=== PATIENT | male | born 1965 | race Caucasian/White ===

== ENCOUNTER 2019-02-08 15:13 | Emergency (ER) | payer OTHER ==
--- OUTSIDE RECORDS SUMMARY | 2019-02-08 15:20 | XMS REPORT | Continuity of Care Document ---
:1965 External Reference #:[id number] Author Name Kimberly Tyson Care Team Providers Name Role Phone Jorden Alston III, MD Primary Care Physician Unavailable Payers Date Identification Numbers Payment Provider Subscriber Policy Number: [id number] [employer] Freda Colby [employer] Number: [id number] [address] PayID: [id number] [place] [address] Effective: 2011 Policy Number: [id number] [employer] Denia Samson Expires: 2012 PayID: [id number] [address] [place] [address] Advance Directives Type Date Description Status Comment Other Directive 03/22/2017 Health Care Proxy Current and Verified Problems Active Problems Provider Date Type 2 diabetes mellitus Melinda Guan M.D. Onset: 09/18/2011 Morbid obesity Melinda Guan M.D. Onset: 09/18/2011 Essential hypertension Melinda Guan M.D. Onset: 09/18/2011 Obstructive sleep apnea syndrome Melinda Guan M.D. Onset: 09/18/2011 Benign essential hypertension Melinda Guan M.D. Onset: 09/18/2011 Pure hypercholesterolemia Melinda Guan M.D. Onset: 12/22/2011 Low back pain Alberto Cramer M.D. Onset: 12/14/2014 Type II diabetes mellitus uncontrolled Jorden Alston M.D. Onset: 2015 Social History Type Date Description Comments Sex Unknown Lives With ETOH Use Rarely consumes beer Tobacco Use Start: Unknown End: Patient is a former smoker quit 2008 Unknown Recreational Drug Use Denies Drug Use Smoking Status Reviewed: 01/27/19 Patient is a former smoker quit 2008 Exercise Type/Frequency Exercises sporadically Allergies, Adverse Reactions, Alerts Description No Known Drug Allergies Medications Active Medications SIG Qnty Indications Ordering Date Provider Lisinopril 1 by mouth every 90tabs I10 Monico Khalil NP 12/22/2018 40mg day Tablets Triamcinolone apply twice daily 30gm R21 Monico Khalil NP 08/23/2017 Acetonide to the affected 0.5% Cream area Blood Glucose Test check blood 100units E11.65 Monico Khalil NP 08/23/2017 glucose 2-3 times Strips daily Vitamin B-12 1 by mouth once a 30tabs Monico Khalil NP 02/22/2017 500mcg day Tablets Slow-Mag One tablet twice 60tabs Monico Khalil NP 02/22/2017 71.5-119mg daily Tablets Naproxen 1 tablet with food 30tabs M79.606 Monico Khalil NP 02/19/2017 500mg by mouth twice a Tablets day for a week and then as needed. Aspirin 1 tablet daily. 90units Monico Khalil NP 07/01/2016 81mg Chewtabs Dexilant take 1 capsule by 90caps K21.9 Monico Khalil NP 01/10/2016 30mg mouth once Capsules DR daily-needs appointment Blood Glucose Test check blood 100units Monico Khalil NP 10/11/2015 glucose twice Strips daily Januvia take 1 tablet by 90tabs E11.65 Monico Khalil NP 10/11/2015 100mg Tablets mouth once daily Cpap, Heated Dx Code 327.23 1units G47.33 Monico Khalil NP 04/13/2014 Humidifier And Supplies Pravastatin Sodium Take 1 Tablet By 90tabs E78.0 Monico Khalil NP 01/10/2014 Mouth AT Bedtime 40mg Tablets Knee Brace Please wear on 844.9 Melinda Guan, 03/03/2013 [facility] [place] T.E.D. Below Knee wear as needed 2Pairs 844.9 Melinda Guan, 03/03/2013 [facility] [place] Take 1 Tablet By 90tabs Monico Khalil NP 11/12/2011 50mg Tablets Mouth Daily Metformin HCL take 1 tablet 180tabs Monico Khalil NP 1000mg twice daily Tablets History Medications Jardiance 09/22/18 not 30tabs E11.65 Monico Khalil NP 08/23/2017 - 10mg taking 1 by 12/22/2018 Tablets mouth daily in the morning Gabapentin take 1 tab qhs. 60caps R20.2 Monico Khalil NP 03/22/2017 - 100mg inrease by 100mg 08/23/2017 Capsules every few days to a max. of 300mg morning, noon and night Tramadol HCL 1-2 tablets 30tabs R20.2 Monico Khalil NP 03/22/2017 - 50mg every 8 hours as 08/23/2017 Tablets needed for pain. Lidocaine apply to painful 50units M79.606 Monico Khalil NP 02/19/2017 - 5% areas three 08/23/2017 Ointment times a day as needed. Jardiance 1 by mouth daily 90tabs E11.65 Jorden Tamayo 07/15/2016 - 10mg in the morning Clarence Alston 11/26/2016 Tablets [place] one to two tabs 40tabs Dominga Kent, 02/13/2016 - 5-325mg by mouth every M.D. 11/26/2016 Tablets 4-6 hours as needed pain Azithromycin 2 tabs by mouth 6tabs J20.9 Monico Khalil NP 08/29/2015 - 250mg every day x1 09/04/2015 Tablets day, 1 tab by mouth every day x 4 days Proair HFA take 1-2 puffs 1units J20.9 Monico Khalil NP 08/29/2015 - every 4-6 hours 09/16/2015 108(90Base) mcg/Act as needed for Aerosol shortness of breath. Lisinopril 1 by mouth every 14tabs Monico Khalil NP 10/02/2014 - 20mg day 10/03/2014 Tablets Onetouch Test use 2 times 100units E11.65 Melinda Guan, 01/12/2014 - daily to check M.D. 08/23/2017 Strips glucose. dx code 250.00 Lisinopril take 1 1/2 135tabs I10 Monico Khalil NP 08/16/2013 - 20mg tablets by mouth 12/22/2018 Tablets daily. Fluticasone 1 spray each 16gm 461.9 Melinda Guan, 04/25/2013 - Propionate nostril daily M.D. 06/19/2013 twice daily as 50mcg/Act needed Suspension Amoxicillin one tablet by 14caps 461.9 Melinda Guan, 04/25/2013 - 500mg mouth every 12 M.D. 06/19/2013 Capsules hours until gone Lisinopril 1 po qd 90tabs 401.9 Melinda Guan, 08/17/2012 - 10mg M.D. 08/16/2013 Tablets Aspirin Ec Lo-Dose 1 tablet daily. 90tabs Melinda Guan, 10/21/2011 - M.D. 07/01/[address] Furosemide po qd 90tabs Melinda Guan, - 40mg M.D. 08/17/2012 Tablets Losartan Potassium 1 po qd 90tabs Melinda Guan, - M.D. 06/28/2012 100mg Tablets Accu-Check Lindy use as directed 300units Monico Khalil NP - Test Strips 10/11/2015 Multi-Day Vitamins 1 po qd Unknown - 08/30/2015 Tablets Eye GTT Unknown - 03/03/2013 Latanoprost 1 drop each qd Unknown - 0.005% 01/10/2016 Solution Vitamin D3 1 po qd 30caps Unknown - 1000Unit 08/31/2015 Capsules Vitamin B-12 1 po qd 30tabs Unknown - 08/31/2015 1000mcg Tablets Sub Pantoprazole Sodium Take 1 Tablet 90tabs K21.9 Monico Khalil NP - Daily 01/10/[address] Brantley CPT Code Status Date Vaccine Lot # [id number] Given 07/15/2016 Influ Virus Vaccine, Quadrivalent, Split Virus, [place] [id number] [place] [id number] Given 07/11/2015 Influenza Virus Vaccine, Quadrivalent, Split, [id number] Preservative Free 05434 Given 06/19/2013 Flu Vaccine Split Virus Preservative Free For [id number] Indiv [id number] Older 58360 Given 02/25/2013 Tdap - Tetanus/Diptheria/Acellular Pertussis [id number] Given 04/08/2012 Fluzone Vaccine [id number] Given 04/08/2012 Pneumonia Vaccine [id number] Given 2007 Tetanus And Diptheria (Td) For Adult Use Preservative Free Vital Signs Date Vital Result Comment 01/27/2019 4:12pm Height 72 inches 6'0" Weight 339.00 lb Heart Rate 79 /min BP Systolic 132 mmHg BP Diastolic 92 mmHg BP Systolic Recheck 136 mmHg BP Diastolic Recheck 86 mmHg Body Temperature 98.2 F O2 % BldC Oximetry 98 % BMI (Body Mass Index) 46.0 kg/m2 12/22/2018 4:58pm Height 72 inches 6'0" Weight 341.38 lb Heart Rate 72 /min BP Systolic 148 mmHg BP Diastolic 96 mmHg BP Systolic Recheck 148 mmHg BP Diastolic Recheck 94 mmHg Body Temperature 98.4 F O2 % BldC Oximetry 98 % BMI (Body Mass Index) 46.3 kg/m2 09/22/2018 4:22pm Height 72 inches 6'0" Weight 348.75 lb Heart Rate 95 /min BP Systolic 169 mmHg BP Diastolic 99 mmHg BP Systolic Recheck 168 mmHg BP Diastolic Recheck 98 mmHg Body Temperature 99.8 F O2 % BldC Oximetry 96 % BMI (Body Mass Index) 47.3 kg/m2 11/24/2017 2:34pm Weight 347.25 lb Heart Rate 91 /min BP Systolic 132 mmHg BP Diastolic 82 mmHg Body Temperature 98.4 F O2 % BldC Oximetry 93 % 08/23/2017 2:41pm Weight 354.50 lb Heart Rate 75 /min BP Systolic 142 mmHg BP Diastolic 84 mmHg BP Systolic Recheck 140 mmHg BP Diastolic Recheck 88 mmHg Body Temperature 98.2 F O2 % BldC Oximetry 98 % 04/12/2017 2:04pm Height 70 inches 5'10" Weight 244.00 lb Heart Rate 70 /min BP Systolic Sitting 142 mmHg BP Diastolic Sitting 80 mmHg Pain Level 8 BMI (Body Mass Index) 35.0 kg/m2 03/22/2017 4:10pm Height 70 inches 5'10" Weight 344.50 lb Heart Rate 94 /min BP Systolic Sitting 132 mmHg BP Diastolic Sitting 86 mmHg Respiratory Rate 24 /min Pain Level 6 legs BMI (Body Mass Index) 49.4 kg/m2 02/19/2017 9:11am Weight 353.50 lb Heart Rate 92 /min BP Systolic 136 mmHg BP Diastolic 78 mmHg Body Temperature 97.0 F O2 % BldC Oximetry 97 % 11/26/2016 8:19am Weight 358.00 lb Heart Rate 65 /min BP Systolic Sitting 136 mmHg BP Diastolic Sitting 88 mmHg O2 % BldC Oximetry 98 % 07/15/2016 10:41am Height 70 inches 5'10" Weight 363.00 lb Heart Rate 78 /min BP Systolic Sitting 148 mmHg BP Diastolic Sitting 100 mmHg Body Temperature 98.3 F O2 % BldC Oximetry 97 % BMI (Body Mass Index) 52.1 kg/m2 04/13/2016 8:56am Weight 347.00 lb Heart Rate 68 /min BP Systolic Sitting 140 mmHg BP Diastolic Sitting 84 mmHg Respiratory Rate 15 /min Body Temperature 98.0 F O2 % BldC Oximetry 98 % 03/26/2016 2:36pm Height 70 inches 5'10" Weight 342.00 lb Pain Level 0 BMI (Body Mass Index) 49.1 kg/m2 03/03/2016 1:15pm Height 70 inches 5'10" Weight 342.00 lb Body Temperature 98.4 F Pain Level 0 BMI (Body Mass Index) 49.1 kg/m2 02/13/2016 1:48pm Height 70 inches 5'10" Weight 342.00 lb BP Systolic 135 mmHg BP Diastolic 80 mmHg Pain Level 7 BMI (Body Mass Index) 49.1 kg/m2 01/10/2016 8:56am Weight 350.25 lb Heart Rate 71 /min BP Systolic Sitting 136 mmHg BP Diastolic Sitting 86 mmHg Body Temperature 98.3 F O2 % BldC Oximetry 98 % 10/11/2015 8:48am Weight 365.50 lb Heart Rate 70 /min BP Systolic Sitting 140 mmHg BP Diastolic Sitting 90 mmHg Body Temperature 98.0 F O2 % BldC Oximetry 98 % 08/29/2015 8:56am Weight 361.25 lb Heart Rate 83 /min BP Systolic Sitting 154 mmHg BP Diastolic Sitting 98 mmHg Respiratory Rate 18 /min Body Temperature 98.1 F O2 % BldC Oximetry 94 % 08/12/2015 8:59am Weight 365.00 lb Heart Rate 69 /min BP Systolic Sitting 130 mmHg BP Diastolic Sitting 88 mmHg Body Temperature 97.3 F O2 % BldC Oximetry 98 % 07/11/2015 11:01am Height 72 inches 6'0" Weight 365.00 lb Heart Rate 80 /min BP Systolic Sitting 148 mmHg BP Diastolic Sitting 90 mmHg Body Temperature 98.4 F BMI (Body Mass Index) 49.5 kg/m2 12/14/2014 12:43pm Height 72 inches 6'0" Weight 374.00 lb Heart Rate 80 /min BP Systolic Sitting 150 mmHg BP Diastolic Sitting 90 mmHg Pain Level 2 back BMI (Body Mass Index) 50.7 kg/m2 11/08/2014 9:05am Weight 373.00 lb Heart Rate 70 /min BP Systolic Sitting 170 mmHg Manual recheck 142/88 BP Diastolic Sitting 111 mmHg Manual recheck 142/88 Body Temperature 98.0 F O2 % BldC Oximetry 98 % 08/10/2014 8:50am Height 72 inches 6'0" Weight 372.00 lb Heart Rate 78 /min BP Systolic 142 mmHg recheck:130/90 BP Diastolic 98 mmHg recheck:130/90 BMI (Body Mass Index) 50.4 kg/m2 05/10/2014 10:04am Height 72 inches 6'0" Weight 376.00 lb Heart Rate 72 /min BP Systolic Sitting 132 mmHg BP Diastolic Sitting 78 mmHg Body Temperature 98.6 F BMI (Body Mass Index) 51.0 kg/m2 01/10/2014 8:31am Weight 384.25 lb Heart Rate 73 /min BP Systolic Sitting 135 mmHg BP Diastolic Sitting 89 mmHg Body Temperature 98.9 F 09/26/2013 8:37am Weight 390.00 lb Heart Rate 72 /min BP Systolic Sitting 140 mmHg BP Diastolic Sitting 78 mmHg Respiratory Rate 20 /min 08/16/2013 10:15am Weight 384.00 lb Heart Rate 74 /min BP Systolic Sitting 138 mmHg BP Diastolic Sitting 86 mmHg 07/19/2013 10:00am Weight 388.25 lb Heart Rate 76 /min BP Systolic Sitting 142 mmHg BP Diastolic Sitting 98 mmHg 07/07/2013 9:38am Weight 385.50 lb Heart Rate 80 /min BP Systolic 144 mmHg BP Diastolic 86 mmHg 06/19/2013 8:59am Weight 386.50 lb Heart Rate 72 /min BP Systolic 138 mmHg BP Diastolic 84 mmHg 04/25/2013 3:07pm Weight 375.00 lb Heart Rate 72 /min BP Systolic Sitting 138 mmHg BP Diastolic Sitting 84 mmHg Body Temperature 98.2 F 03/03/2013 10:38am Weight 373.00 lb Heart Rate 72 /min BP Systolic Sitting 144 mmHg BP Diastolic Sitting 88 mmHg 12/28/2012 9:49am Weight 384.50 lb Heart Rate 70 /min BP Systolic Sitting 140 mmHg 130/84 recheck BP Diastolic Sitting 90 mmHg 130/84 recheck 10/24/2012 10:35am Height 72.75 inches 6'0.75" Weight 390.00 lb Heart Rate 70 /min BP Systolic Sitting 140 mmHg BP Diastolic Sitting 80 mmHg Body Temperature 98.4 F BMI (Body Mass Index) 51.8 kg/m2 08/17/2012 8:39am Height 72.75 inches 6'0.75" Weight 392.00 lb Heart Rate 70 /min BP Systolic Sitting 130 mmHg BP Diastolic Sitting 84 mmHg BMI (Body Mass Index) 52.1 kg/m2 04/08/2012 9:32am Height 72.75 inches 6'0.75" Weight 381.00 lb Heart Rate 72 /min BP Systolic Sitting 122 mmHg BP Diastolic Sitting 80 mmHg BMI (Body Mass Index) 50.6 kg/m2 03/14/2012 9:47am Height 72.75 inches 6'0.75" Weight 382.00 lb Heart Rate 70 /min BP Systolic Sitting 130 mmHg BP Diastolic Sitting 82 mmHg BMI (Body Mass Index) 50.7 kg/m2 02/09/2012 8:36am Height 72.75 inches 6'0.75" Weight 379.00 lb Heart Rate 72 /min BP Systolic Sitting 134 mmHg BP Diastolic Sitting 82 mmHg BMI (Body Mass Index) 50.3 kg/m2 12/22/2011 8:30am Height 72.75 inches 6'0.75" Weight 381.00 lb Heart Rate 76 /min BP Systolic Sitting 144 mmHg BP Diastolic Sitting 78 mmHg BMI (Body Mass Index) 50.6 kg/m2 10/21/2011 11:03am Height 72.75 inches 6'0.75" Weight 377.00 lb Heart Rate 72 /min BP Systolic Sitting 142 mmHg BP Diastolic Sitting 76 mmHg BMI (Body Mass Index) 50.1 kg/m2 09/18/2011 3:21pm Height 72.75 inches 6'0.75" Weight 376.00 lb Heart Rate 74 /min BP Systolic Sitting 138 mmHg BP Diastolic Sitting 72 mmHg BMI (Body Mass Index) 49.9 kg/m2 Results Test Date Facility Test Result H/L Range Note Laboratory test 12/22/2018 [facility] House Hemoglobin A1c 6.5% 5-7 finding Lipid Profile 09/24/2018 [facility] Triglycerides 174 mg/dL 1 (Trig/Chol/HDL) [address] [place] [address] [phone] Cholesterol 148 mg/dL 2 HDL Cholesterol 25.0 mg/dL 3 LDL Cholesterol 88 mg/dL 4 Comp Metabolic Panel 09/24/2018 [facility] Sodium 138 mmol/L N 135-[address] [place] [address] [phone] Potassium 4.4 mmol/L N 3.5-5.0 Chloride 101 mmol/L N 101-111 Co2 Carbon Dioxide 30 mmol/L N 22-32 Anion Gap 7 mmol/L N 2-11 Glucose 134 mg/dL High 70-100 Blood Urea Nitrogen 9 mg/dL N 6-24 Creatinine 0.76 mg/dL N 0.67-1.17 BUN/Creatinine Ratio 11.8 N 8-20 Calcium 9.6 mg/dL N 8.6-10.3 Total Protein 7.1 g/dL N 6.4-8.9 Albumin 4.3 g/dL N 3.2-5.2 Globulin 2.8 g/dL N 2-4 Albumin/Globulin Ratio 1.5 N 1-3 Total Bilirubin 0.60 mg/dL N 0.2-1.0 Alkaline Phosphatase 70 U/L N 34-104 Alt 56 U/L High 7-52 Ast 46 U/L High 13-39 Egfr Non- 106.9 >60 Egfr 129.3 >60 5 Laboratory test 09/24/2018 [facility] Hemoglobin A1c 7.4 % High 4.0-5.[address] (Glyco HGB) [place] [address] [phone] Urine 09/24/2018 [facility] Ur Microalbumin 92.[address] (mg/L) [place] [address] [phone] Urine Creatinine 158.81 mg/dL Urine Microalbumin/Creatinine 58.3 High <31 Laboratory test 09/22/2018 [facility] House Hemoglobin A1c 7.3 High 5-7 finding Urine Microalbumin 09/22/2018 [facility] Ur Microalbumin 121.[address] (mg/L) [place] [address] [phone] Urine Creatinine 190.16 mg/dL Urine Microalbumin/Creatinine 63.9 High <31 Laboratory test 11/22/2017 [facility] Hemoglobin A1c 7.9 % High 4.0-5.6 [address] (Glyco HGB) [place] [address] [phone] Urine 11/22/2017 [facility] Ur Microalbumin 49.[address] (mg/L) mg/[place] [address] [phone] Urine Creatinine 160.88 mg/dL Urine Microalbumin/Creatinine 30.7 ug/mg N <31 Laboratory test 08/23/2017 [facility] House Hemoglobin A1c 11.0 High 5-7 finding CBC Auto Diff 02/20/2017 [facility] White Blood Count 4.6 N 3.5-10.[address] 10^3/[place] [address] [phone] Red Blood Count 4.81 10^6/uL N 4.0-5.4 Hemoglobin 14.3 g/dL N 14.0-18.0 Hematocrit 42 % N 42-52 Mean Corpuscular Volume 88 fL N 80-94 Mean Corpuscular Hemoglobin 30 pg N 27-31 Mean Corpuscular HGB Conc 34 g/dL N 31-36 Red Cell Distribution Width 14 % N 10.5-15 Platelet Count 137 10^3/uL Low 150-450 Mean Platelet Volume 10 um3 N 7.4-10.4 Abs Neutrophils 2.7 10^3/uL N 1.5-7.7 Abs Lymphocytes 1.4 10^3/uL N 1.0-4.8 Abs Monocytes 0.3 10^3/uL N 0-0.8 Abs Eosinophils 0.1 10^3/uL N 0-0.6 Abs Basophils 0 10^3/uL N 0-0.2 Abs Nucleated RBC 0 10^3/uL N Granulocyte % 59.3 % N 38-83 Lymphocyte % 30.6 % N 25-47 Monocyte % 7.6 % N 1-9 Eosinophil % 1.5 % N 0-6 Basophil % 1.0 % N 0-2 Nucleated Red Blood Cells % 0 N Laboratory test 02/20/2017 [facility] TSH (Thyroid 1.46 mcIU/mL N 0.34-5.[address] Stim Horm) [place] [address] [phone] Vitamin B12 228 pg/mL N 180-914 8 Magnesium 1.7 mg/dL Low 1.9-2.7 Comp Metabolic Panel 02/20/2017 [facility] Sodium 136 mmol/L N 133-[address] [place] [address] [phone] Potassium 4.3 mmol/L N 3.5-5.0 Chloride 102 mmol/L N 101-111 Co2 Carbon Dioxide 27 mmol/L N 22-32 Anion Gap 7 mmol/L N 2-11 Glucose 193 mg/dL High 70-100 Blood Urea Nitrogen 8 mg/dL N 6-24 Creatinine 0.68 mg/dL N 0.67-1.17 BUN/Creatinine Ratio 11.8 N 8-20 Calcium 8.9 mg/dL N 8.6-10.3 Total Protein 6.8 g/dL N 6.4-8.9 Albumin 3.9 g/dL N 3.2-5.2 Globulin 2.9 g/dL N 2-4 Albumin/Globulin Ratio 1.3 N 1-3 Total Bilirubin 0.40 mg/dL N 0.2-1.0 Alkaline Phosphatase 93 U/L N 34-104 Alt 63 U/L High 7-52 Ast 66 U/L High 13-39 Egfr Non- 122.5 N >60 Egfr 157.5 N >60 9 Lipid Profile 02/20/2017 [facility] Triglycerides 266 mg/dL N 10 (Trig/Chol/HDL) [address] [place] [address] [phone] Cholesterol 123 mg/dL N 11 HDL Cholesterol 23.3 mg/dL N 12 LDL Cholesterol 47 mg/dL N 13 Laboratory test 02/20/2017 [facility] Hemoglobin A1c 10.1 % High Less [address] (Glyco HGB) than 6.0 [place] [address] [phone] Urine 11/26/2016 [facility] Urine 170.[address] Creatinine mg/[place] [address] [phone] Ur Microalbumin (mg/L) 125.9 mg/L N Urine Microalbumin/Creatinine 73.8 ug/mg High <31 Laboratory test 11/26/2016 [facility] House Hemoglobin A1c 10.4 High 5-7 finding Laboratory test 07/15/2016 [facility] House Hemoglobin A1c 8.5 High 5-7 finding Laboratory test 06/05/2016 [facility] Surgical SEE RESULT [address] [place] [address] [phone] Laboratory test 04/13/2016 [facility] House Hemoglobin A1c 6.6 5-7 finding Mumps Igg 03/09/2016 [facility] Mumps Virus IgG Positive N [address] Antibody [place], [place] [address] [phone] Mumps IgG Antibody Index 3.6 N 17 Laboratory test 03/09/2016 [facility] Rubella Immune IU/mL N Immune finding [address] [place] [address] [phone] Rubeola Measles 03/09/2016 [facility] Rubeola Positive N 18 Igg AB [address] (Measles) [place] [address] Antibody [phone] Rubeola IgG Antibody Index 4.2 N 19 Laboratory 02/21/2016 [facility] Surgical SEE 20, 21 test finding [address] [place] [address] BELOW [phone] Laboratory 02/21/2016 [facility] Point of Care 137 mg/dL High 74-106 22 test finding [address] [place] [address] [phone] Laboratory 01/03/2016 [facility] Hemoglobin A1c 7.4 % High Less 23 test finding [address] (Glyco HGB) [place] [address] [phone] Lipid Profile 01/03/2016 [facility] Triglycerides 120 mg/dL N 24 (Trig/Chol/HDL [address] ) [place] [address] [phone] Cholesterol 113 mg/dL N 25 HDL Cholesterol 23.1 mg/dL N 26 LDL Cholesterol 66 mg/dL N 27 Laboratory test 10/11/2015 [facility] House Hemoglobin A1c 9.4 High 5-7 finding Urine Microalbumin 08/10/2015 [facility] Ur Microalbumin 221.0 mg/L N Random [address] (mg/L) [place] [address] [phone] Urine Creatinine 228.37 mg/dL N Urine Microalbumin/Creatinine 96.7 ug/mg High <31 Basic Metabolic Panel 08/10/2015 [facility] Sodium 134 mmol/L N 133-[address] [place], [place] [id number] [phone] Potassium 4.3 mmol/L N 3.5-5.0 Chloride 98 mmol/L Low 101-111 Co2 Carbon Dioxide 28 mmol/L N 22-32 Anion Gap 8 mmol/L N 2-11 Glucose 212 mg/dL High 70-100 Blood Urea Nitrogen 9 mg/dL N 6-24 Creatinine 0.78 mg/dL N 0.67-1.17 BUN/Creatinine Ratio 11.5 N 8-20 Calcium 9.3 mg/dL N 8.6-10.3 Egfr Non- 104.9 N >60 Egfr 135.0 N >60 28 Laboratory 08/10/2015 [facility] Hepatitis C Nonreactive N Nonreactive test finding [address] [place] [address] [phone] Laboratory 07/11/2015 [facility] In House Hemoglobin A1c 10.9 High 5-7 test finding Lipid 11/08/2014 [facility] Triglycerides 176 mg/dL N 29, Profile [address] 30 (Trig/Chol/[place] [address] DL) [phone] Cholesterol 132 mg/dL N 31 HDL Cholesterol 28.2 mg/dL N 32 LDL Cholesterol 69 mg/dL N 33 Basic Metabolic Panel 11/08/2014 [facility] Sodium 135 mmol/L N 133-[address] [place] [address] [phone] Potassium 4.2 mmol/L N 3.5-5.0 Chloride 101 mmol/L N 101-111 Co2 Carbon Dioxide 29 mmol/L N 22-32 Anion Gap 5 mmol/L N 2-11 Glucose 157 mg/dL High 70-100 Blood Urea Nitrogen 9 mg/dL N 6-24 Creatinine 0.76 mg/dL N 0.67-1.17 BUN/Creatinine Ratio 11.8 N 8-20 Calcium 9.4 mg/dL N 8.6-10.3 Egfr Non- 108.6 N >60 Egfr 139.6 N >60 34 Laboratory test 11/08/2014 [facility] House Hemoglobin A1c 8.2 High 5-7 finding Laboratory test 08/10/2014 [facility] House Hemoglobin A1c 7.2 High 5-7 finding Laboratory test 05/10/2014 [facility] House Hemoglobin A1c 7.9 High 5-7 finding Urine Microalbumin 05/10/2014 [facility] Ur Microalbumin 62.0 mg /L N Random [address] (mg/L) [place] [address] [phone] Urine Creatinine 196.55 mg/dL N Urine Microalbumin/Creatinine 31.5 High Less Than 31 Lipid Profile 01/08/2014 [facility] Triglycerides 361 mg/dL N 35 (Trig/Chol/HDL) [address] [place] [address] [phone] Cholesterol 176 mg/dL N 36 HDL Cholesterol 24.2 mg/dL N 37 LDL Cholesterol 80 mg/dL N 38 Comp Metabolic Panel 01/08/2014 [facility] Sodium 133 mmol/L N 133-145 [address] [place] [address] [phone] Potassium 4.8 mmol/L N 3.7-5.6 Chloride 97 mmol/L Low 101-111 Co2 Carbon Dioxide 31 mmol/L N 22-32 Anion Gap 5 mmol/L N 2-11 Glucose 169 mg/dL High 70-100 Blood Urea Nitrogen 11 mg/dL N 6-24 Creatinine 0.79 mg/dL N 0.67-1.17 BUN/Creatinine Ratio 13.9 N 8-20 Calcium 9.4 mg/dL N 8.6-10.3 Total Protein 7.0 g/dL N 6.4-8.9 Albumin 4.3 g/dL N 3.2-5.2 Globulin 2.7 g/dL N 2-4 Albumin/Globulin Ratio 1.6 N 1-3 Total Bilirubin 0.50 mg/dL N 0.2-1.0 Alkaline Phosphatase 74 U/L N 34-104 Alt 55 U/L High 7-52 Ast 45 U/L High 13-39 Egfr Non- 104.2 N >60 Egfr 134.1 N >60 39 Laboratory test 01/08/2014 [facility] Hemoglobin A1c 8.4 % High Less than [address] 6.0 [place] [address] [phone] Comp Metabolic 09/25/2013 [facility] Sodium 137 133-[address] mmol/[place] [address] [phone] Potassium 4.7 mmol/L 3.7-5.6 Chloride 100 mmol/L Low 101-111 Co2 Carbon Dioxide 29 mmol/L 22-32 Anion Gap 8 mmol/L 2-11 Glucose 166 mg/dL High 70-100 Blood Urea Nitrogen 10 mg/dL 6-24 Creatinine 0.79 mg/dL 0.67-1.17 BUN/Creatinine Ratio 12.7 8-20 Calcium 9.2 mg/dL 8.6-10.3 Total Protein 6.7 g/dL 6.4-8.9 Albumin 4.3 g/dL 3.2-5.2 Globulin 2.4 g/dL 2-4 Albumin/Globulin Ratio 1.8 1-3 Total Bilirubin 0.40 mg/dL 0.2-1.0 Alkaline Phosphatase 70 U/L 34-104 Alt 59 U/L High 7-52 Ast 56 U/L High 13-39 Egfr Non- 104.2 >60 Egfr 134.1 >60 41 Laboratory test 09/25/2013 [facility] Hemoglobin A1c 8.5 % High Less [address] than 6.0 [place] [address] [phone] Laboratory test 06/19/2013 [facility] Registered In House Hemoglobin A1c 7.7 High 5-7 finding Urine 06/19/2013 [facility] Ur Microalbumin 46.0 [address] (mg/L) mg/[place] [address] [phone] Urine Creatinine 150.6 mg/dL Urine Microalbumin/Creatinine 30.5 Less Than 31 Lipid Profile 02/06/2013 [facility] Triglycerides 308 mg/dL High 40-200 (Trig/Chol/HDL) [address] [place] [address] [phone] Cholesterol 156 mg/dL Less than 200 HDL Cholesterol 23 mg/dL Low 40-60 44 Cholesterol/HDL Ratio 6.8 Average High 1-4.44 LDL Cholesterol 71.4 Less Than 100 45 Laboratory test 02/06/2013 [facility] Hemoglobin A1c 7.0 % High Less [address] than 6.0 [place] [address] [phone] Laboratory test 02/06/2013 [facility] Methylmalonic 0.32 <= 0.[address] Acid nmol/[place] [address] [phone] Laboratory test 12/28/2012 [facility] TSH (Thyroid 1.26 0.34- 5.[address] Stimulating Horm) miu/mL 0 [place] [address] [phone] Vitamin B12 279 pg/mL 180-914 Vitamin D, 25 12/28/2012 [facility] 25-Hydroxy Vitamin <4.0 ng/ mL [address] D[address] [place] [address] [phone] 25-Hydroxy Vitamin D3 19 ng/mL 25-Hydroxy Vitamin D Total 19 ng/mL Abnormal 48 Laboratory test 10/24/2012 [facility] Hemoglobin A1c 8.2 High 5-7 finding Laboratory test 08/17/2012 [facility] Hemoglobin A1c 7.4 High 5-7 finding Basic Metabolic 08/17/2012 [facility] Sodium 138 mmol/L 133- [address] [place] [address] [phone] Potassium 4.7 mmol/L 3.5-5.0 Chloride 101 mmol/L 101-111 Co2 Carbon Dioxide 30.0 mmol/L 22-32 Anion Gap 7.0 mmol/L 2-11 Glucose 140 mg/dL High 70-100 Blood Urea Nitrogen 9 mg/dL 6-24 Creatinine 1.00 mg/dL 0.50-1.40 BUN/Creatinine Ratio 9.0 8-20 Calcium 9.7 mg/dL 8.1-9.9 Egfr Non- 79.8 >60 Egfr 102.6 >60 49 Urine Microalbumin 03/28/2012 [facility] Microalbumin 28.0 mg/L Random [address] (MG/L) [place] [address] [phone] Urine Creatinine 223.5 mg/dL Mamadou Alb/Creatinine Ratio 12.5 UG/MG Less Than 30 50 Laboratory test 03/28/2012 [facility] Hemoglobin A1c 6.9 % High Less Than [address] 6[address] [place] [address] [phone] Lipid Profile 03/28/2012 [facility] Triglyceride 277 High 40- 200 (Trig/Chol/HDL) [address] mg/[place] [address] [phone] Cholesterol 180 mg/dL Less Than 200 52 High Density Lipoprotein 24 mg/dL Low 40-60 53 Cholesterol/HDL Ratio 7.50 AVERAGE High 1-4.97 Low Density Lipoprotein 101 mg/dL High Less Than 100 54 Comp Metabolic Panel 03/28/2012 [facility] Sodium 137 mmol/L 135-[address] [place] [address] [phone] Potassium 4.6 mmol/L 3.5-5.0 Chloride 103 mmol/L 101-111 Co2 (Carbon Dioxide) 29.0 mmol/L 22-32 Anion Gap 5.0 mmol/L 2-11 55 Glucose 132 mg/dL High 70-100 BUN 11 mg/dL 6-24 Creatinine 0.8 mg/dL 0.50-1.40 One Over Creatinine 1.25 BUN/Creatinine Ratio 13.8 8-20 Calcium 9.4 mg/dL 8.1-9.9 Total Protein 6.2 GM/DL 6.2-8.1 Albumin 3.7 GM/DL 3.6-5.4 Globulin 2.5 GM/DL 2-4 Albumin/Globulin Ratio 1.5 1-3 Bilirubin Total 0.5 mg/dL 0.4-1.5 56 Alkaline Phosphatase 74 U/L 39-117 Alt (SGPT) 35 U/L 17-63 Ast (Sgot) 22 U/L 12-42 eGFR Non- 103.6 > 60 eGFR 133.3 > 60 57 Lipid Panel - J[facility] 03/28/2012 [facility] CPK (Creatine 138 U/L 0-[address] Kinase) [place] [address] [phone] Laboratory test 12/22/2011 [facility] House Hemoglobin A1c 6.4 5-7 finding Comp Metabolic 12/21/2011 [facility] Sodium 139 135-[address] mmol/[place] [address] [phone] Potassium 4.7 mmol/L 3.5-5.0 Chloride 103 mmol/L 101-111 Co2 (Carbon Dioxide) 30.0 mmol/L 22-32 Anion Gap 6.0 mmol/L 2-11 58 Glucose 129 mg/dL High 70-100 BUN 11 mg/dL 6-24 Creatinine 0.9 mg/dL 0.50-1.40 One Over Creatinine 1.11 BUN/Creatinine Ratio 12.2 8-20 Calcium 9.3 mg/dL 8.1-9.9 Total Protein 6.4 GM/DL 6.2-8.1 Albumin 4.0 GM/DL 3.6-5.4 Globulin 2.4 GM/DL 2-4 Albumin/Globulin Ratio 1.7 1-3 Bilirubin Total 0.5 mg/dL 0.4-1.5 59 Alkaline Phosphatase 73 U/L 39-117 Alt (SGPT) 33 U/L 17-63 Ast (Sgot) 20 U/L 12-42 eGFR Non- 90.4 > 60 eGFR 116.3 > 60 60 Lipid Profile 12/21/2011 [facility] Triglyceride 166 mg/dL 40 -200 (Trig/Chol/HDL) [address] [place] [address] [phone] Cholesterol 179 mg/dL Less Than 200 61 High Density Lipoprotein 23 mg/dL Low 40-60 62 Cholesterol/HDL Ratio 7.78 AVERAGE High 1-4.97 Low Density Lipoprotein 123 mg/dL High Less Than 100 63 Laboratory test finding 09/18/2011 [facility] Hemoglobin A1c 6.1 5-7 1 Desirable: <150 Borderline High: 150-199 High: 200-499 Very High: >500 2 Desirable: <200 Borderline High: 200-239 High: >239 3 Low: <40 Desirable: 40-60 High: >60 4 Desirable: <100 Near Optimal: 100-129 Borderline High: 130-159 High: 160-189 Very High: >189 5 Because ethnic data is not always readily available, this report includes an eGFR for both -Americans and non- Americans. The National Kidney Disease Education Program (NKDEP) does not endorse the use of the MDRD equation for patients that are not between the ages of 18 and 70, are , have extremes of body size, muscle mass, or nutritional status, or are non- or non-. According to the National Kidney Foundation, irrespective of diagnosis, the stage of the disease is based on the level of kidney function: Stage Description GFR(mL/min/1.73 m(2)) 1 Kidney damage with normal or decreased GFR 90 2 Kidney damage with mild decrease in GFR 60-89 3 Moderate decrease in GFR 30-59 4 Severe decrease in GFR 15-29 5 Kidney failure <15 (or dialysis) 6 Therapeutic target for the treatment of diabetes mellitus patients is <7% HBA1C, and in selective patients <6.0%. Please refer to [place] [employer] diabetic care guidelines for further information. 7 Therapeutic target for the treatment of diabetes mellitus patients is <7% HBA1C, and in selective patients <6.0%. Please refer to [place] [employer] diabetic care guidelines for further information. 8 Normal Range 180 to 914 Indeterminate Range 145 to 180 Deficient Range <145 9 Because ethnic data is not always readily available, this report includes an eGFR for both -Americans and non- Americans. The National Kidney Disease Education Program (NKDEP) does not endorse the use of the MDRD equation for patients that are not between the ages of 18 and 70, are , have extremes of body size, muscle mass, or nutritional status, or are non- or non-. According to the National Kidney Foundation, irrespective of diagnosis, the stage of the disease is based on the level of kidney function: Stage Description GFR(mL/min/1.73 m(2)) 1 Kidney damage with normal or decreased GFR 90 2 Kidney damage with mild decrease in GFR 60-89 3 Moderate decrease in GFR 30-59 4 Severe decrease in GFR 15-29 5 Kidney failure <15 (or dialysis) 10 Desirable <150 Borderline high 150-199 High 200-499 Very High >500 11 Desirable <200 Borderline high 200-239 High >239 12 Low <40 Desirable: 40-60 High: >60 13 Desirable: <100 mg/dL Near Optimal: 100-129 mg/dL Borderline High: 130-159 mg/dL High: 160-189 mg/dL Very High: >189 mg/dL 14 Therapeutic target for the treatment of diabetes Mellitus patients is <7% HBA1C, and in selective patients <6.0%.Please refer to [place] [employer] Diabetic care guidelines for further information. 15 SEE RESULT BELOW Name: DENIA SAMSON : [address]: Keanu Joy MD Acct: [id number] Unit: [id number] AGE: 50 Location: ENDO Re06/05/16 SEX: M Status: DEP REF SPEC: [id number] SHITAL: 06/05/16-[address] [facility] [address]: Keanu Joy MD REQ: [id number] RECD: 06/05/165 STATUS: VANCE PALMA DR: Monico Alston III, MD _ ORDERED: LEVEL IV/5 FINAL DIAGNOSIS 1. Colon, proximal transverse, biopsy: -- Hyperplastic polyp. 2. Colon, distal transverse, biopsy: -- Hyperplastic polyp. 3. Colon, ileocecal nodule, biopsy: -- Hyperplastic change. 4. Colon, mid transverse, biopsy: -- Tubular adenoma. -- No high grade dysplasia or malignancy. 5. Colon, splenic flexure, biopsy: -- Hyperplastic polyp. CLINICAL HISTORY Usual bowel habit - twice a day - loose, without blood POST-OPERATIVE DIAGNOSIS Colonoscopy to cecum prep fair to poor, many seeds, scoped clogged. Conclusions/Plan: Pancolonic diverticulosis - sigmoid greater than right; polyps CONTINUED ON NEXT PAGE * ML=Testing performed at Main Lab DEPARTMENT OF PATHOLOGY, [address] [place] [address] Varun Robins M.D. Director [facility] # [id number] RUN DATE: 06/08/16 [facility] LAB LIVE PAGE 2 Patient: DENIA SAMSON [id number] (Continued) GROSS DESCRIPTION (Continued) GROSS DESCRIPTION 1. The specimen is received in formalin labeled, Proximal Transverse Colon Polyp, and consists of a 0.8 x 0.6 x 0.1 cm aggregate of andrews-white irregular to polypoid soft tissue fragments, which is entirely submitted in one cassette. 2. The specimen is received in formalin labeled, Biopsy Distal Transverse Colon Nodule, and consists of a 1.1 by up to 0.6 by up to 0.2 cm aggregate of speckled andrews- brown irregular to polypoid soft tissue fragments, which is entirely submitted in one cassette. 3. The specimen is received in formalin labeled, Biopsy Ileocecal Nodule, and consists of a 0.6 x 0.2 x 0.2 cm speckled andrews-brown irregular to polypoid soft tissue fragment, which is entirely submitted in one cassette. 4. The specimen is received in formalin labeled, Mid Transverse Colon Polyp , and consists of a 1.0 x 0.5 x 0.3 cm speckled andrews-brown sessile polyp, which is inked, longitudinally bisected and entirely submitted in one cassette. 5. The specimen is received in formalin labeled, Biopsy Splenic Flexure Nodule, and consists of two speckled andrews-brown irregular to polypoid soft tissue fragments measuring 0.5 x 0.3 x 0.1 cm and 0.8 x 0.2 x 0.1 cm, which are entirely submitted in one cassette. Signed (signature on file) Varun Robins MD 1502 END OF REPORT * ML=Testing performed at Main Lab DEPARTMENT OF PATHOLOGY, [address] [place] [address] Varun Robins M.D. Director [facility] # [id number] 16 Results suggest response to immunization or prior exposure to the virus. REFERENCE VALUE Vaccinated: Positive (>=1.1 AI) Unvaccinated: Negative (<=0.8 AI) 17 Test Performed by: [place] [id number] [employer] Mechanic: Blake Choudhury II, M.D., Ph.D. 18 Results suggest response to immunization or prior exposure to the virus. REFERENCE VALUE Vaccinated: Positive (>=1.1 AI) Unvaccinated: Negative (<=0.8 AI) 19 Test Performed by: [address] [address] [employer]ic: Blake Choudhury II, M.D., Ph.D. 20 [id number] 21 SEE RESULT BELOW Name: DENIA SAMSON : [address]: Dominga Kent MD Acct: [id number] Unit: [id number] AGE: 50 Location: [facility] Re02/21/16 SEX: M Status: REG [facility] SPEC: [id number] SHITAL: 02/21/16-[address] [facility] [address]: Dominga Kent MD REQ: [id number] RECD: 02/21/166 STATUS: SOUT _ ORDERED: Decal, LEVEL III COMMENTS: [id number] FINAL DIAGNOSIS Ulna, resection: -- Segment of cortical bone. PRE-OPERATIVE DIAGNOSIS Sprain of carpal joint left wrist. GROSS DESCRIPTION The specimen is received in formalin labeled, Portion of Left Ulna, and consists of a 2.2 x 1.6 x 0.2 cm andrews-white ovoid bone fragment. Entirely submitted, one cassette following decalcification. MICROSCOPIC DESCRIPTION Signed (signature on file) Varun Robins MD 1145 END OF REPORT * ML=Testing performed at Main Lab DEPARTMENT OF PATHOLOGY, [address] [place] [address] Varun Robins M.D. Director [facility] # [id number] 22 Collar Closer Lockstitch: [id number] FREDERICK WEINBERG 23 Therapeutic target for the treatment of diabetes Mellitus patients is <7% HBA1C, and in selective patients <6.0%.Please refer to [place] [employer] Diabetic care guidelines for further information. 24 Desirable <150 Borderline high 150-199 High 200-499 Very High >500 25 Desirable <200 Borderline high 200-239 High >239 26 Low <40 Desirable: 40-60 High: >60 27 Desirable: <100 mg/dL Near Optimal: 100-129 mg/dL Borderline High: 130-159 mg/dL High: 160-189 mg/dL Very High: >189 mg/dL 28 Because ethnic data is not always readily available, this report includes an eGFR for both -Americans and non- Americans. The National Kidney Disease Education Program (NKDEP) does not endorse the use of the MDRD equation for patients that are not between the ages of 18 and 70, are , have extremes of body size, muscle mass, or nutritional status, or are non- or non-. According to the National Kidney Foundation, irrespective of diagnosis, the stage of the disease is based on the level of kidney function: Stage Description GFR(mL/min/1.73 m(2)) 1 Kidney damage with normal or decreased GFR 90 2 Kidney damage with mild decrease in GFR 60-89 3 Moderate decrease in GFR 30-59 4 Severe decrease in GFR 15-29 5 Kidney failure <15 (or dialysis) 29 FASTING 30 Desirable <150 Borderline high 150-199 High 200-499 Very High >500 31 Desirable <200 Borderline high 200-239 High >239 32 Low <40 Desirable: 40-60 High: >60 33 Desirable: <100 mg/dL Near Optimal: 100-129 mg/dL Borderline High: 130-159 mg/dL High: 160-189 mg/dL Very High: >189 mg/dL 34 Because ethnic data is not always readily available, this report includes an eGFR for both -Americans and non- Americans. The National Kidney Disease Education Program (NKDEP) does not endorse the use of the MDRD equation for patients that are not between the ages of 18 and 70, are , have extremes of body size, muscle mass, or nutritional status, or are non- or non-. According to the National Kidney Foundation, irrespective of diagnosis, the stage of the disease is based on the level of kidney function: Stage Description GFR(mL/min/1.73 m(2)) 1 Kidney damage with normal or decreased GFR 90 2 Kidney damage with mild decrease in GFR 60-89 3 Moderate decrease in GFR 30-59 4 Severe decrease in GFR 15-29 5 Kidney failure <15 (or dialysis) 35 Desirable <150 Borderline high 150-199 High 200-499 Very High >500 36 Desirable <200 Borderline high 200-239 High >239 37 Low <40 Desirable: 40-60 High: >60 38 Desirable <100 Near Optimal 100-129 Borderline high 130-159 High 160-189 Very High >189 39 Because ethnic data is not always readily available, this report includes an eGFR for both -Americans and non- Americans. The National Kidney Disease Education Program (NKDEP) does not endorse the use of the MDRD equation for patients that are not between the ages of 18 and 70, are , have extremes of body size, muscle mass, or nutritional status, or are non- or non-. According to the National Kidney Foundation, irrespective of diagnosis, the stage of the disease is based on the level of kidney function: Stage Description GFR(mL/min/1.73 m(2)) 1 Kidney damage with normal or decreased GFR 90 2 Kidney damage with mild decrease in GFR 60-89 3 Moderate decrease in GFR 30-59 4 Severe decrease in GFR 15-29 5 Kidney failure <15 (or dialysis) 40 Therapeutic target for the treatment of diabetes Mellitus patients is <7% HBA1C, and in selective patients <6.0%.Please refer to [place] [employer] Diabetic care guidelines for further information. 41 Because ethnic data is not always readily available, this report includes an eGFR for both -Americans and non- Americans. The National Kidney Disease Education Program (NKDEP) does not endorse the use of the MDRD equation for patients that are not between the ages of 18 and 70, are , have extremes of body size, muscle mass, or nutritional status, or are non- or non-. According to the National Kidney Foundation, irrespective of diagnosis, the stage of the disease is based on the level of kidney function: Stage Description GFR(mL/min/1.73 m(2)) 1 Kidney damage with normal or decreased GFR 90 2 Kidney damage with mild decrease in GFR 60-89 3 Moderate decrease in GFR 30-59 4 Severe decrease in GFR 15-29 5 Kidney failure <15 (or dialysis) 42 Therapeutic target for the treatment of diabetes Mellitus patients is <7% HBA1C, and in selective patients <6.0%.Please refer to [place] [employer] Diabetic care guidelines for further information. 43 Microalbuminuria in a random sample is defined as: Microalbumin/Creatinine ratio of 30-299 ug/mg. 44 HDL Interpretation: Undesirable: High Risk: Less than 40 mg/dL Desirable: Low Risk: Greater than 60 mg/dL 45 LDL Interpretation: Low Risk Optimal Level: LDL Less than 100 mg/dL Near or Above Optimal: LDL 100-129 mg/dL Borderline High Risk: LDL 130-159 mg/dL High Risk: LDL 160-189 mg/dL Very High Risk: LDL Greater than 189 mg/dL 46 Therapeutic target for the treatment of diabetes Mellitus patients is <7% HBA1C, and in selective patients <6.0%.Please refer to [place] [employer] Diabetic care guidelines for further information. 47 Test Performed by: [place] [address] Auto Bumper Mechanic: Nelson Jones III, M.D. 48 Interpretation: 10-24 (mild to moderate deficiency) -- REFERENCE VALUE -- 25-HYDROXY D TOTAL (D2+D3) Optimum levels in the normal population are 25-80 Test Performed by: [place] [address] Auto Bumper Mechanic: Nelson Jones III, M.D. 49 Because ethnic data is not always readily available, this report includes an eGFR for both -Americans and non- Americans. The National Kidney Disease Education Program (NKDEP) does not endorse the use of the MDRD equation for patients that are not between the ages of 18 and 70, are , have extremes of body size, muscle mass, or nutritional status, or are non- or non-. According to the National Kidney Foundation, irrespective of diagnosis, the stage of the disease is based on the level of kidney function: Stage Description GFR(mL/min/1.73 m(2)) 1 Kidney damage with normal or decreased GFR 90 2 Kidney damage with mild decrease in GFR 60-89 3 Moderate decrease in GFR 30-59 4 Severe decrease in GFR 15-29 5 Kidney failure <15 (or dialysis) 50 MICROALBUMINURIA IN A RANDOM SAMPLE IS DEFINED : MICROALBUMIN/CREATININE RATIO OF 30-299 ug/mg. . 51 THERAPEUTIC TARGET FOR THE TREATMENT OF DIABETES MELLITUS PATIENTS IS <7% HBA1C, AND IN SELECTIVE PATIENTS <6.0%. PLEASE REFER TO [place] [employer] DIABETIC CARE GUIDELINES FOR FURTHER INFORMATION. 52 CHOLESTEROL INTERPRETATION: Desirable: Less than 200 MG/DL Borderline-High Risk: 200-239 MG/DL High-Risk: 240 MG/DL and over 53 HDL INTERPRETATION: Undesirable: High Risk: Less than 40 MG/DL Desirable: Low Risk: Greater than 60 MG/DL 54 LDL INTERPRETATION: Low Risk Optimal Level: LDL Less than 100 MG/DL Near or Above Optimal: LDL 100-129 MG/DL Borderline High Risk: LDL 130-159 MG/DL High Risk: LDL 160-189 MG/DL Very High Risk: LDL Greater than 189 MG/DL 55 Anion gap measurement may be of limited value in the presence of any alkalosis, especially in a combined acid base disorder. . 56 A metabolite of Naproxen, O-desmethylnaproxen, has been shown to interfere with the [place] method for measuring total bilirubin. Samples from patients who have taken Naproxen have shown spurious elevation in total bilirubin levels. 57 Because ethnic data is not always readily available, this report includes an eGFR for both -Americans and non- Americans. The National Kidney Disease Education Program (NKDEP) does not endorse the use of the MDRD equation for patients that are not between the ages of 18 and 70, are , have extremes of body size, muscle mass, or nutritional status, or are non- or non-. According to the National Kidney Foundation, irrespective of diagnosis, the stage of the disease is based on the level of kidney function: Stage Description GFR(mL/min/1.73 m(2)) 1 Kidney damage with normal or decreased GFR 90 2 Kidney damage with mild decrease in GFR 60-89 3 Moderate decrease in GFR 30-59 4 Severe decrease in GFR 15-29 5 Kidney failure <15 (or dialysis) 58 Anion gap measurement may be of limited value in the presence of any alkalosis, especially in a combined acid base disorder. . 59 A metabolite of Naproxen, O-desmethylnaproxen, has been shown to interfere with the [place] method for measuring total bilirubin. Samples from patients who have taken Naproxen have shown spurious elevation in total bilirubin levels. 60 Because ethnic data is not always readily available, this report includes an eGFR for both -Americans and non- Americans. The National Kidney Disease Education Program (NKDEP) does not endorse the use of the MDRD equation for patients that are not between the ages of 18 and 70, are , have extremes of body size, muscle mass, or nutritional status, or are non- or non-. According to the National Kidney Foundation, irrespective of diagnosis, the stage of the disease is based on the level of kidney function: Stage Description GFR(mL/min/1.73 m(2)) 1 Kidney damage with normal or decreased GFR 90 2 Kidney damage with mild decrease in GFR 60-89 3 Moderate decrease in GFR 30-59 4 Severe decrease in GFR 15-29 5 Kidney failure <15 (or dialysis) 61 CHOLESTEROL INTERPRETATION: Desirable: Less than 200 MG/DL Borderline-High Risk: 200-239 MG/DL High-Risk: 240 MG/DL and over 62 HDL INTERPRETATION: Undesirable: High Risk: Less than 40 MG/DL Desirable: Low Risk: Greater than 60 MG/DL 63 LDL INTERPRETATION: Low Risk Optimal Level: LDL Less than 100 MG/DL Near or Above Optimal: LDL 100-129 MG/DL Borderline High Risk: LDL 130-159 MG/DL High Risk: LDL 160-189 MG/DL Very High Risk: LDL Greater than 189 MG/DL Procedures Date Code Description Status 02/04/2018 22276 Nerve Conduction 05-06 Studies Completed 02/04/2018 47532 Needle Electromyography Each Extremity W/Related Completed Paraspinal Areas 12/14/2016 [id number] Diabetic Retinal Eye Exam Completed 06/05/2016 [id number] Colonoscopy Completed 02/21/2016 48099 Arthroscopy Wrist Excision/Repair Triang Completed Fibrocartilage/Debride 02/21/2016 74853 Osteoplasty Shorten Radius Or Ulna Completed 10/30/2015 [id number] Diabetic Retinal Eye Exam Completed 10/19/2012 [id number] Diabetic Retinal Eye Exam Completed 07/13/2012 67810 Rad Exam; Ankle Comp Completed 07/13/2012 70499 Xray Knee 3 Views Completed 07/13/2012 96245 Xray Knee 3 Views Completed 10/21/2011 80581 EKG Tracing & Interpretation Completed 08/25/2011 37343 Rad Exam; OS Alcis Completed Encounters Type Date Location Provider Dx Diagnosis Office Visit 12/22/2018 [facility] Monico Khalil NP E11.9 Type 2 diabetes 4:20p Medicine - [facility] mellitus without complications I10 Essential (primary) hypertension G47.39 Other sleep apnea Office Visit 09/22/2018 4:20p [facility] Monico Khalil E11.65 Type 2 diabetes Medicine - [facility] [employer] mellitus with [facility] hyperglycemia I10 Essential (primary) hypertension E78.00 Pure hypercholesterolemia, unspecified Office Visit 11/24/2017 2:40p [facility] Monico Khalil E11.65 Type 2 diabetes Medicine - [employer] mellitus with [facility] hyperglycemia I10 Essential (primary) hypertension M51.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 disc disorders w radiculopathy, lumbar region Office Visit 08/23/2017 2:40p [facility] Monico Khalil, E11.65 Type 2 diabetes Medicine - [employer] mellitus with [facility] hyperglycemia I10 Essential (primary) hypertension R21 Rash and other nonspecific skin eruption Office Visit 04/12/2017 Neurosurgery Laila Wilson, G57.13 Meralgia 2:00p [facility] paresthetica, bilateral lower limbs M51.36 Other intervertebral disc degeneration, lumbar region Office Visit 03/22/2017 4:20p [facility] Monico Khalil, E11.65 Type 2 diabetes Medicine - [employer] mellitus with [facility] hyperglycemia I10 Essential (primary) hypertension R20.2 Paresthesia of skin M51.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00 Encntr for 10:40a Medicine-Odette Alston M.D. general adult medical exam w/o abnormal findings E11.65 Type 2 diabetes mellitus with hyperglycemia I10 Essential (primary) hypertension E78.00 Pure hypercholesterolemia, unspecified G47.33 Obstructive sleep apnea (adult) (pediatric) K21.9 Gastro-esophageal reflux disease without esophagitis Z23 Encounter for immunization Office Visit 04/13/2016 8:40a [facility] Monico Khalil E11.65 Type 2 diabetes Medicine - [employer] mellitus with Ccmob hyperglycemia I10 Essential (primary) hypertension Office Visit 02/13/2016 Orthopedic Dominga S63.512A Sprain of carpal 1:30p Services Of Clarence Kent joint of left C.M.A. wrist, initial encounter Office Visit 01/10/2016 [facility] Monico Khalil NP E11.65 Type 2 diabetes 9:00a Medicine - Ccmob mellitus with hyperglycemia K21.9 Gastro-esophageal reflux disease without esophagitis R22.9 Localized swelling, mass and lump, unspecified Office Visit 10/11/2015 9:00a [facility] Monico Khalil, E11.65 Type 2 diabetes Medicine - [employer] mellitus with Ccmob hyperglycemia I10 Essential (primary) hypertension Office Visit 08/29/2015 9:00a [facility] Monico Khalil, J20.9 Acute bronchitis, Medicine - [employer] unspecified Ccmob Office Visit 08/12/2015 9:00a [facility] Monico Khalil E11.65 Type 2 diabetes Medicine - [employer] mellitus with Ccmob hyperglycemia M25.561 Pain in right knee I10 Essential (primary) hypertension Office Visit 07/11/2015 10:40a [facility] Jorden Tamayo E11.65 Type 2 diabetes Carmelita Alston M.D. mellitus with Ccmob hyperglycemia I10 Essential (primary) hypertension E78.0 Pure hypercholesterolemia G47.33 Obstructive sleep apnea (adult) (pediatric) Z11.59 Encounter for screening for other viral diseases Z00.00 Encntr for general adult medical exam w/o abnormal findings Z23 Encounter for immunization Office Visit 12/14/2014 1:00p Neurosurgery Alberto Nixon 724.2 Lumbago Services Of Amy Cramer M.D. Office Visit 11/08/2014 9:00a [facility] Monico Khalil, COLTON 250.02 Diabetes Medicine - Ccmob Mellitus W/O Compl Type II Or Unspec Type Uncontrol 401.9 Hypertension Unspec 724.4 Neuritis Or Radiculitis Thoracic Or Lumbosacral Unspec Office Visit 08/10/2014 9:00a [facility] Monico Khalil, 250.02 Diabetes Mellitus Medicine - Ccmob [employer] W/O Compl Type II Or Unspec Type Uncontrol 401.9 Hypertension Unspec 719.43 Pain Joint Forearm Office Visit 05/10/2014 10:00a [facility] Monico Khalil, 250.02 Diabetes Mellitus Medicine - Ccmob [employer] W/O Compl Type II Or Unspec Type Uncontrol 401.9 Hypertension Unspec Office Visit 01/10/2014 8:40a [facility] Melinda Guan 250.02 Diabetes Medicine - Milanaob M.DClifford Mellitus W/O Compl Type II Or Unspec Type Uncontrol 272.0 Hypercholesterolemia Pure 573.3 Hepatitis Unspec 278.01 Obesity Morbid Office Visit 09/26/2013 8:40a [facility] Adalid Guan, 278.01 Obesity Morbid Medicine - Felice Lima 250.02 Diabetes Mellitus W/O Compl Type II Or Unspec Type Uncontrol Office Visit 08/16/2013 10:20a [facility] Adalid Guan, 401.9 Hypertension Unspec Medicine - MCamryn Ccmob 250.00 Diabetes Mellitus W/O Compl Type II Or Unspec Controlled 278.01 Obesity Morbid Office Visit 07/19/2013 10:00a [facility] Melinda Guan, 278.01 Obesity Morbid Medicine - Felice MCamryn Office Visit 07/07/2013 9:40a [facility] Adalid Guan 278.01 Obesity Morbid Medicine - Felice Lima Office Visit 06/19/2013 9:00a [facility] Adalid Guan, 250.00 Diabetes Mellitus Medicine - Ccmketurah MCliffordDClifford W/O Compl Type II Or Unspec Controlled 278.01 Obesity Morbid 401.9 Hypertension Unspec V04.81 Need For Prophylactic Vaccination & Inoculation/Influenza Office Visit 04/25/2013 2:40p [facility] Melinda Guan, 461.9 Sinusitis Acute Medicine - Milanaob M.DClifford Unspec Office Visit 03/03/2013 10:40a [facility] Melinda Guan, 278.01 Obesity Morbid Medicine - Milanaob M.D. 250.00 Diabetes Mellitus W/O Compl Type II Or Unspec Controlled 844.9 Sprains & Strains Knee & Leg Unspec Office Visit 12/28/2012 9:00a [facility] Adalid Guan, 250.02 Diabetes Medicine - Milanaob M.D. Mellitus W/O Compl Type II Or Unspec Type Uncontrol 278.01 Obesity Morbid 401.9 Hypertension Unspec 782.0 Skin Sensation Disturbance Office Visit 10/24/2012 10:40a [facility] Adalid Guan, 250.00 Diabetes Mellitus Medicine - Ccmob M.D. W/O Compl Type II Or Unspec Controlled 401.9 Hypertension Unspec 278.01 Obesity Morbid Office Visit 08/17/2012 8:40a [facility] Adalid Guan, 250.00 Diabetes Mellitus Medicine - Felice M.D. W/O Compl Type II Or Unspec Controlled 401.9 Hypertension Unspec Office Visit 08/10/2012 4:15p Orthopedic Reggie Whitaker, 845.00 Sprains & Services Of C.M.A. M.D. Strains Ankle Unspec Site 719.46 Pain Joint Lower Leg Office Visit 07/13/2012 11:15a Orthopedic Connie Chairez, 845.00 Sprains & Services Of C.M.A. RPA-C Strains Ankle Unspec Site 844.9 Sprains & Strains Knee & Leg Unspec Office Visit 04/08/2012 9:40a [facility] Adalid Guan, 250.00 Diabetes Mellitus Medicine - Milanaob M.D. W/O Compl Type II Or Unspec Controlled 272.0 Hypercholesterolemia Pure 401.9 Hypertension Unspec V04.81 Need For Prophylactic Vaccination & Inoculation/Influenza V03.82 Streptococcus Pneumoniae Vaccination Spec Other Office Visit 03/14/2012 9:40a [facility] Adalid Guan, 379.90 Eye Disorder Medicine - Felice M.D. Unspec Office Visit 02/09/2012 8:40a [facility] Adalid Guan, 250.00 Diabetes Mellitus Medicine - Felice M.D. W/O Compl Type II Or Unspec Controlled 401.9 Hypertension Unspec Office Visit 12/22/2011 8:40a [facility] Adalid Guan, 250.00 Diabetes Mellitus Medicine - Felice Lima W/O Compl Type II Or Unspec Controlled 401.9 Hypertension Unspec 278.01 Obesity Morbid 272.0 Hypercholesterolemia Pure Office Visit 12/21/2011 1:30p Orthopedic Jaylen 728.71 Fibromatosis Services Of Clarence Chanel Plantar Fascia C.MToo Office Visit 10/21/2011 11:20a [facility] Melinda Guan, 250.00 Diabetes Mellitus Medicine - Felice Lima W/O Compl Type II Or Unspec Controlled 401.9 Hypertension Unspec 278.01 Obesity Morbid 327.23 Obstructive Sleep Apnea Adult & Pediatric V70.0 Examination General Medical Routine AT [facility] Care Facility 785.9 Cardiovascular Symptoms Other 709.9 Skin & Subcutaneous Tissue Disorders Unspec Office Visit 09/18/2011 3:20p [facility] Melinda Guan, 250.00 Diabetes Mellitus Medicine - Felice Lima W/O Compl Type II Or Unspec Controlled 278.01 Obesity Morbid 327.23 Obstructive Sleep Apnea Adult & Pediatric 401.1 Hypertension Benign Office Visit 08/25/2011 10:30a Orthopedic Reggie Whitaker, 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 Continue on current medications. Try to check your blood pressure periodically and report readings that are elevated.Follow up:5 months diabetes f/u
--- OUTSIDE RECORDS SUMMARY | 2019-02-08 15:20 | XMS REPORT | Continuity of Care Document ---
:1965 External Reference #:[id number] Author Name Maria Fernanda Guan Care Team Providers Name Role Phone Jorden Alston III, MD Primary Care Physician Unavailable Payers Date Identification Numbers Payment Provider Subscriber Policy Number: [id number] [employer] Freda Samson Group Number: [id number] [address] PayID: [id number] [place] [address] Effective: 2011 Policy Number: [id number] [employer] Denia Samson Expires: 2012 PayID: [id number] [address] [place] [address] Advance Directives Type Date Description Status Comment [...] Use Denies Drug Use Smoking Status Reviewed: 02/08/19 Patient is a former smoker quit 2008 [...] Khalil NP 01/10/2016 30mg mouth once Capsules daily-needs appointment Blood Glucose Test check blood [...] Please wear on 844.9 Melinda Guan, 03/03/2013 [facility] right knee while M.D. upright T.E.D. Below Knee wear as needed 2Pairs 844.9 Melinda Guan, 03/03/2013 LG-X M.Sharon [facility] Atenolol Take 1 Tablet By 90tabs Monico [...] in the morning Clarence Alston 11/26/2016 Tablets Munden one to two tabs 40tabs Dominga Kent, [...] Guan, 10/21/2011 - M.D. 07/01/2016 81mg Tablets Furosemide po qd 90tabs Melinda Guan, - [...] CPT Code Status Date Vaccine Lot # [id number] Given 07/15/2016 Influ Virus Vaccine, Quadrivalent, Split Virus, [place] [id number] [address] Given 07/11/2015 Influenza Virus Vaccine, Quadrivalent, Split, [id number] Preservative Free [id number] Given 06/19/2013 Flu Vaccine Split Virus Preservative Free For [id number] Indiv [id number] Older 51399 Given 02/25/2013 Tdap - Tetanus/Diptheria/Acellular Pertussis [id number] Given 04/08/2012 Fluzone Vaccine [id number] 87851 Given 04/08/2012 Pneumonia Vaccine [id number] 09851 Given 2007 Tetanus And Diptheria (Td) For Adult Use Preservative Free Vital Signs Date Vital Result Comment 02/08/2019 2:33pm Height 72 inches 6'0" Weight 339.00 lb Heart Rate 80 /min BP Systolic 138 mmHg BP Diastolic 88 mmHg Body Temperature 99.4 F Pain Level 4 BMI (Body Mass Index) 46.0 kg/m2 01/27/2019 4:12pm Height 72 inches 6'0" Weight [...] Result H/L Range Note Laboratory test 12/22/2018 [facility] Hemoglobin A1c 6.5% 5-7 finding Lipid Profile 09/24/2018 [facility] Triglycerides 174 mg/dL 1 (Trig/Chol/HDL) [address] [place] [address] [phone] Cholesterol 148 mg/dL 2 HDL Cholesterol 25.0 mg/dL 3 LDL Cholesterol 88 mg/dL 4 Comp Metabolic Panel 09/24/2018 [facility] Sodium 138 mmol/L N 135-145 [address] [place] [address] [phone] Potassium 4.4 mmol/L N 3.5-5.0 Chloride 101 [...] Egfr 129.3 >60 5 Laboratory test 09/24/2018 [facility] Hemoglobin A1c 7.4 % High 4.0-5.6 6 finding 101 (Glyco HGB) [place] [address] [phone] Urine 09/24/2018 [facility] Ur Microalbumin 92.[address] (mg/L) [place] [address] [phone] Urine Creatinine 158.81 mg/dL Urine Microalbumin/Creatinine 58.3 High <31 Laboratory test 09/22/2018 [facility] Hemoglobin A1c 7.3 High 5-7 finding Urine Microalbumin 09/22/2018 [facility] Ur Microalbumin 121.[address] (mg/L) [place] [address] [phone] Urine Creatinine 190.16 mg/dL Urine Microalbumin/Creatinine 63.9 High <31 Urine Microalbumin 11/22/2017 [facility] Ur Microalbumin 49.4 mg /L Random [address] (mg/L) [place] [address] [phone] Urine Creatinine 160.88 mg/dL Urine Microalbumin/Creatinine 30.7 ug/mg N <31 Laboratory test 11/22/2017 [facility] Hemoglobin A1c 7.9 % High 4.0-5.6 [address] (Glyco HGB) [place] [address] [phone] Laboratory test 08/23/2017 [facility] In House Hemoglobin A1c 11.0 High 5-7 finding CBC Auto Diff 02/20/2017 [facility] White Blood 4.6 N 3.5- 10.[address] Count 10^3/[place] [address] [phone] Red Blood Count 4.81 10^6/uL N 4.0-5.4 [...] Cells % 0 N Laboratory test 02/20/2017 [facility] TSH (Thyroid 1.46 mcIU/mL N 0.34-5.60 finding 101 Stim Horm) [place] [address] [phone] Vitamin B12 228 pg/mL N 180-914 8 Magnesium 1.7 mg/dL Low 1.9-2.7 Comp Metabolic Panel 02/20/2017 [facility] Sodium 136 mmol/L N 133-145 [address] [place] [address] [phone] Potassium 4.3 mmol/L N 3.5-5.0 Chloride 102 [...] 157.5 N >60 9 Lipid Profile 02/20/2017 [facility] Triglycerides 266 mg/dL N 10 (Trig/Chol/HDL) [address] [place] [address] [phone] Cholesterol 123 mg/dL N 11 HDL Cholesterol 23.3 mg/dL N 12 LDL Cholesterol 47 mg/dL N 13 Laboratory test 02/20/2017 [facility] Hemoglobin A1c 10.1 % High Less [address] (Glyco HGB) than 6.0 [place] [address] [phone] Urine 11/26/2016 [facility] Urine 170.50 [address] Microalbumin [address] Creatinine mg/dL Random [place], [place] [id number] [phone] Ur Microalbumin (mg/L) 125.9 mg/L N Urine Microalbumin/Creatinine 73.8 ug/mg High <31 Laboratory test 11/26/2016 [facility] Hemoglobin A1c 10.4 High 5-7 finding Laboratory test 07/15/2016 [facility] Hemoglobin A1c 8.5 High 5-7 finding Laboratory test 06/05/2016 [facility] Surgical SEE RESULT [address] Interface Order BELOW [place], [place] [id number] [phone] Laboratory test 04/13/2016 [facility] Hemoglobin A1c 6.6 5-7 finding Mumps Igg 03/09/2016 [facility] Mumps Virus IgG Positive N [address] [place] [address] [phone] Mumps IgG Antibody Index 3.6 N 17 Laboratory test 03/09/2016 [facility] Rubella Immune IU/mL N Immune finding [address] [place] [address] [phone] Rubeola Measles 03/09/2016 [facility] Rubeola Positive N 18 Igg AB [address] (Measles) [place] [address] Antibody [phone] Rubeola IgG Antibody Index 4.2 N 19 Laboratory 02/21/2016 [facility] Surgical SEE RESULT 20, 21 test finding [address] [place] [place] [address] [phone] Laboratory 02/21/2016 [facility] Point of Care 137 mg/dL High 74-1 22 test finding [address] Glucose 06 [place], [place] [id number] [phone] Lipid Profile 01/03/2016 [facility] Triglycerides 120 mg/dL N 23 (Trig/Chol/HDL [address] ) [place], [place] [phone] Cholesterol 113 mg/dL N 24 HDL Cholesterol 23.1 mg/dL N 25 LDL Cholesterol 66 mg/dL N 26 Laboratory test 01/03/2016 [facility] Hemoglobin A1c 7.4 % High Less [address] (Glyco HGB) than 6.0 [place] [address] [phone] Laboratory test 10/11/2015 [facility] Hemoglobin A1c 9.4 High 5-7 finding Urine 08/10/2015 [facility] Ur Microalbumin 221.0 N Microalbumin 101 (mg/L) mg/L Random [place], [place] [phone] [phone] Urine Creatinine 228.37 mg/dL N Urine Microalbumin/Creatinine 96.7 ug/mg High <31 Basic Metabolic Panel 08/10/2015 [facility] Sodium 134 mmol/L N 133-[address] [place] [address] [phone] Potassium 4.3 mmol/L N 3.5-5.0 Chloride 98 mmol/L Low 101-111 Co2 Carbon Dioxide 28 mmol/L N 22-32 Anion Gap 8 mmol/L N 2-11 Glucose 212 mg/dL High 70-100 Blood Urea Nitrogen 9 mg/dL N 6-24 Creatinine 0.78 mg/dL N 0.67-1.17 BUN/Creatinine Ratio 11.5 N 8-20 Calcium 9.3 mg/dL N 8.6-10.3 Egfr Non- 104.9 N >60 Egfr 135.0 N >60 28 Laboratory 08/10/2015 [facility] Hepatitis C Nonreactive N Nonreactive test finding [address] [place] [address] [phone] Laboratory 07/11/2015 [facility] Hemoglobin A1c 10.9 High 5-7 test finding Lipid 11/08/2014 [facility] Triglycerides 176 mg/dL N 29, Profile [address] 30 (Trig/Chol/[place] [address] DL) [phone] Cholesterol 132 mg/dL N 31 HDL Cholesterol 28.2 mg/dL N 32 LDL Cholesterol 69 mg/dL N 33 Basic Metabolic Panel 11/08/2014 [facility] Sodium 135 mmol/L N 133-[address] [place], [place] [address]88 [phone] Potassium 4.2 mmol/L N 3.5-5.0 Chloride 101 mmol/L N 101-111 Co2 Carbon Dioxide 29 mmol/L N 22-32 Anion Gap 5 mmol/L N 2-11 Glucose 157 mg/dL High 70-100 Blood Urea Nitrogen 9 mg/dL N 6-24 Creatinine 0.76 mg/dL N 0.67-1.17 BUN/Creatinine Ratio 11.8 N 8-20 Calcium 9.4 mg/dL N 8.6-10.3 Egfr Non- 108.6 N >60 Egfr 139.6 N >60 34 Laboratory test 11/08/2014 [facility] Hemoglobin A1c 8.2 High 5-7 finding Laboratory test 08/10/2014 [facility] Hemoglobin A1c 7.2 High 5-7 finding Laboratory test 05/10/2014 [facility] Hemoglobin A1c 7.9 High 5-7 finding Urine Microalbumin 05/10/2014 [facility] Ur Microalbumin 62.0 mg /L N Random [address] (mg/L) [place] [address] [phone] Urine Creatinine 196.55 mg/dL N Urine Microalbumin/Creatinine 31.5 High Less Than 31 Lipid Profile 01/08/2014 [facility] Triglycerides 361 mg/dL N 35 (Trig/Chol/HDL) [address] [place] [address] [phone] Cholesterol 176 mg/dL N 36 HDL Cholesterol 24.2 mg/dL N 37 LDL Cholesterol 80 mg/dL N 38 Comp Metabolic Panel 01/08/2014 [facility] Sodium 133 mmol/L N 133-[address] [place] [address] [phone] Potassium 4.8 mmol/L N 3.7-5.6 Chloride 97 [...] 134.1 N >60 39 Laboratory test 01/08/2014 [facility] Hemoglobin A1c 8.4 % High Less than [address] 6.0 [place] [address] [phone] Laboratory test 09/25/2013 [facility] Hemoglobin A1c 8.5 % High Less than [address] 6.0 [place] [address] [phone] Comp Metabolic 09/25/2013 [facility] Sodium 137 133-[address] mmol/[place] [address] [phone] Potassium 4.7 mmol/L 3.7-5.6 Chloride 100 mmol/L [...] Egfr Non- 104.2 >60 Egfr 134.1 >60 42 Laboratory test 06/19/2013 [facility] Hemoglobin A1c 7.7 High 5-7 finding Urine Microalbumin 06/19/2013 [facility] Ur Microalbumin 46.0 mg /L [address] (mg/L) [place] [address] [phone] Urine Creatinine 150.6 mg/dL Urine Microalbumin/Creatinine 30.5 Less Than 31 Lipid Profile 02/06/2013 [facility] Triglycerides 308 mg/dL High 40-200 (Trig/Chol/HDL) [address] [place] [address] [phone] Cholesterol 156 mg/dL Less than 200 HDL Cholesterol 23 mg/dL Low 40-60 44 Cholesterol/HDL Ratio 6.8 Average High 1-4.44 LDL Cholesterol 71.4 Less Than 100 45 Laboratory test 02/06/2013 [facility] Hemoglobin A1c 7.0 % High Less [address] than 6.0 [place] [address] [phone] Laboratory test 02/06/2013 [facility] Methylmalonic 0.32 <= 0.40 [address] Acid nmol/[place] [address] [phone] Vitamin D, 25 12/28/2012 [facility] 25-Hydroxy <4.[address] Vitamin D2 ng/[place] [address] [phone] 25-Hydroxy Vitamin D3 19 ng/mL 25-Hydroxy Vitamin D Total 19 ng/mL Abnormal 48 Laboratory test 12/28/2012 [facility] TSH (Thyroid 1.26 0.34- 5.[address] Stimulating miu/[place] [address] Horm) [phone] Vitamin B12 279 pg/mL 180-914 Laboratory test 10/24/2012 [facility] Hemoglobin A1c 8.2 High 5-7 finding Basic Metabolic 08/17/2012 [facility] Sodium 138 mmol/L 133- [address] [place] [address] [phone] Potassium 4.7 mmol/L 3.5-5.0 Chloride 101 mmol/L 101-111 Co2 Carbon Dioxide 30.0 mmol/L 22-32 Anion Gap 7.0 mmol/L 2-11 Glucose 140 mg/dL High 70-100 Blood Urea Nitrogen 9 mg/dL 6-24 Creatinine 1.00 mg/dL 0.50-1.40 BUN/Creatinine Ratio 9.0 8-20 Calcium 9.7 mg/dL 8.1-9.9 Egfr Non- 79.8 >60 Egfr 102.6 >60 49 Laboratory test 08/17/2012 [facility] Hemoglobin A1c 7.4 High 5-7 finding Lipid Panel - JFM 03/28/2012 [facility] CPK (Creatine 138 U/L 0-[address] Kinase) [place] [address] [phone] Comp Metabolic 03/28/2012 [facility] Sodium 137 mmol/L 135- [address] [place] [address] [phone] Potassium 4.6 mmol/L 3.5-5.0 Chloride 103 mmol/L 101-111 Co2 (Carbon Dioxide) 29.0 mmol/L 22-32 Anion Gap 5.0 mmol/L 2-11 50 Glucose 132 mg/dL High 70-100 BUN 11 mg/dL 6-24 Creatinine 0.8 mg/dL 0.50-1.40 One Over Creatinine 1.25 BUN/Creatinine Ratio 13.8 8-20 Calcium 9.4 mg/dL 8.1-9.9 Total Protein 6.2 GM/DL 6.2-8.1 Albumin 3.7 GM/DL 3.6-5.4 Globulin 2.5 GM/DL 2-4 Albumin/Globulin Ratio 1.5 1-3 Bilirubin Total 0.5 mg/dL 0.4-1.5 51 Alkaline Phosphatase 74 U/L 39-117 Alt (SGPT) 35 U/L 17-63 Ast (Sgot) 22 U/L 12-42 eGFR Non- 103.6 > 60 eGFR 133.3 > 60 52 Lipid Profile 03/28/2012 [facility] Triglyceride 277 mg/dL High 40-200 (Trig/Chol/HDL) [address] [place] [address] [phone] Cholesterol 180 mg/dL Less Than 200 53 High Density Lipoprotein 24 mg/dL Low 40-60 54 Cholesterol/HDL Ratio 7.50 AVERAGE High 1-4.97 Low Density Lipoprotein 101 mg/dL High Less Than 100 55 Laboratory test 03/28/2012 [facility] Hemoglobin A1c 6.9 % High Less [address] Than 6.0 [place] [address] [phone] Urine 03/28/2012 [facility] Microalbumin 28.[address] (MG/L) mg/[place] [address] [phone] Urine Creatinine 223.5 mg/dL Mamadou Alb/Creatinine Ratio 12.5 UG/MG Less Than 30 57 Laboratory test 12/22/2011 [facility] Hemoglobin A1c 6.4 5-7 finding Lipid Profile 12/21/2011 [facility] Triglyceride 166 mg/dL 40 -200 (Trig/Chol/HDL) [address] [place] [address] [phone] Cholesterol 179 mg/dL Less Than 200 58 High Density Lipoprotein 23 mg/dL Low 40-60 59 Cholesterol/HDL Ratio 7.78 AVERAGE High 1-4.97 Low Density Lipoprotein 123 mg/dL High Less Than 100 60 Comp Metabolic Panel 12/21/2011 [facility] Sodium 139 mmol/L 135-145 [address] [place] [address] [phone] Potassium 4.7 mmol/L 3.5-5.0 Chloride 103 mmol/L 101-111 Co2 (Carbon Dioxide) 30.0 mmol/L 22-32 Anion Gap 6.0 mmol/L 2-11 61 Glucose 129 mg/dL High 70-100 BUN 11 mg/dL 6-24 Creatinine 0.9 mg/dL 0.50-1.40 One Over Creatinine 1.11 BUN/Creatinine Ratio 12.2 8-20 Calcium 9.3 mg/dL 8.1-9.9 Total Protein 6.4 GM/DL 6.2-8.1 Albumin 4.0 GM/DL 3.6-5.4 Globulin 2.4 GM/DL 2-4 Albumin/Globulin Ratio 1.7 1-3 Bilirubin Total 0.5 mg/dL 0.4-1.5 62 Alkaline Phosphatase 73 U/L 39-117 Alt (SGPT) 33 U/L 17-63 Ast (Sgot) 20 U/L 12-42 eGFR Non- 90.4 > 60 eGFR 116.3 > 60 63 Laboratory test finding 09/18/2011 [facility] In House Hemoglobin A1c 6.1 5-7 1 [...] in selective patients <6.0%. Please refer to [place] [employer] diabetic care guidelines for further information. 7 Therapeutic target for the treatment of diabetes mellitus patients is <7% HBA1C, and in selective patients <6.0%. Please refer to [place] [employer] diabetic care guidelines for further [...] and in selective patients <6.0%.Please refer to [place] [employer] Diabetic care guidelines for further information. 15 SEE RESULT BELOW Name: DENIA SAMSON : [address]: Keanu Joy MD Acct: [id number] Unit: [id number] AGE: 50 Location: ENDO Re06/05/16 SEX: M Status: DEP REF SPEC: [id number] SHITAL: 06/05/[address] [facility] [address]: Keanu Joy MD REQ: [id number] RECD: 06/05/162085 STATUS: VANCE PALMA DR: Monico Alston III, [...] performed at Main Lab DEPARTMENT OF PATHOLOGY, [address] [place] [address] Varun Robins M.D. Director JASON # [id number] RUN DATE: 06/08/16 [facility] LAB LIVE PAGE 2 Patient: DENIA SAMSON [id number] (Continued) GROSS DESCRIPTION (Continued) GROSS DESCRIPTION 1. [...] performed at Main Lab DEPARTMENT OF PATHOLOGY, [address] [place] [address] Varun Robins M.D. Director [facility] # [id number] 16 Results suggest response to immunization or prior exposure to the virus. REFERENCE VALUE Vaccinated: Positive (>=1.1 AI) Unvaccinated: Negative (<=0.8 AI) 17 Test Performed by: [place] [id number] Financial Counselor: Blake Choudhury II, M.D., Ph.D. 18 Results suggest response to immunization or prior exposure to the virus. REFERENCE VALUE Vaccinated: Positive (>=1.1 AI) Unvaccinated: Negative (<=0.8 AI) 19 Test Performed by: [address] [address] Financial Counselor: Blake Choudhury II, M.D., Ph.D. 20 [id number] 21 SEE RESULT BELOW Name: DENIA SAMSON : [address]: Dominga Kent MD Acct: [id number] Unit: [id number] AGE: 50 Location: [facility] Re02/21/16 SEX: M Status: REG [facility] SPEC: [id number] SHITAL: 02/21/16-[address] [facility] [address]: Dominga Kent MD REQ: [id number] RECD: 02/21/16 STATUS: SOUT _ ORDERED: Decjose, LEVEL III COMMENTS: [id number] FINAL DIAGNOSIS Ulna, resection: -- Segment of [...] performed at Main Lab DEPARTMENT OF PATHOLOGY, [address] [place] [address] Varun Robins M.D. Director [facility] # [id number] 22 Appliance Line Assembler: [id number] FREDERICK WEINBERG 23 Desirable <150 Borderline high 150-199 High 200-499 Very High >500 24 Desirable <200 Borderline high 200-239 High >239 25 Low <40 Desirable: 40-60 High: >60 26 Desirable: <100 mg/dL Near Optimal: 100-129 mg/dL Borderline High: 130-159 mg/dL High: 160-189 mg/dL Very High: >189 mg/dL 27 Therapeutic target for the treatment of diabetes Mellitus patients is <7% HBA1C, and in selective patients <6.0%.Please refer to [place] [employer] Diabetic care guidelines for further information. 28 Because ethnic data is not always [...] and in selective patients <6.0%.Please refer to [place] [employer] Diabetic care guidelines for further information. 41 Therapeutic target for the treatment of diabetes Mellitus patients is <7% HBA1C, and in selective patients <6.0%.Please refer to [place] [employer] Diabetic care guidelines for further information. 42 Because ethnic data is not always readily [...] 15-29 5 Kidney failure <15 (or dialysis) 43 Microalbuminuria in a random sample is [...] and in selective patients <6.0%.Please refer to [place] [employer] Diabetic care guidelines for further information. 47 Test Performed by: [facility] [place] [address] Financial Counselor: Nelson Jones III, M.D. 48 Interpretation: 10-24 (mild to moderate deficiency) -- REFERENCE VALUE -- 25-HYDROXY D TOTAL (D2+D3) Optimum levels in the normal population are 25-80 Test Performed by: [place] [address] Financial Counselor: Nelson Jones III, M.D. 49 Because ethnic [...] 5 Kidney failure <15 (or dialysis) 50 Anion gap measurement may be of limited value in the presence of any alkalosis, especially in a combined acid base disorder. . 51 A metabolite of Naproxen, O-desmethylnaproxen, has been shown to interfere with the Jendrassik-Any method for measuring total bilirubin. Samples from patients who have taken Naproxen have shown spurious elevation in total bilirubin levels. 52 Because ethnic data is not always readily [...] 15-29 5 Kidney failure <15 (or dialysis) 53 CHOLESTEROL INTERPRETATION: Desirable: Less than 200 MG/DL Borderline-High Risk: 200-239 MG/DL High-Risk: 240 MG/DL and over 54 HDL INTERPRETATION: Undesirable: High Risk: Less than 40 MG/DL Desirable: Low Risk: Greater than 60 MG/DL 55 LDL INTERPRETATION: Low Risk Optimal Level: LDL Less than 100 MG/DL Near or Above Optimal: LDL 100-129 MG/DL Borderline High Risk: LDL 130-159 MG/DL High Risk: LDL 160-189 MG/DL Very High Risk: LDL Greater than 189 MG/DL 56 THERAPEUTIC TARGET FOR THE TREATMENT OF DIABETES MELLITUS PATIENTS IS <7% HBA1C, AND IN SELECTIVE PATIENTS <6.0%. PLEASE REFER TO [place] [place] DIABETIC CARE GUIDELINES FOR FURTHER INFORMATION. 57 MICROALBUMINURIA IN A RANDOM SAMPLE IS DEFINED : MICROALBUMIN/CREATININE RATIO OF 30-299 ug/mg. . 58 CHOLESTEROL INTERPRETATION: Desirable: Less than 200 MG/DL Borderline-High Risk: 200-239 MG/DL High-Risk: 240 MG/DL and over 59 HDL INTERPRETATION: Undesirable: High Risk: Less than 40 MG/DL Desirable: Low Risk: Greater than 60 MG/DL 60 LDL INTERPRETATION: Low Risk Optimal Level: LDL Less than 100 MG/DL Near or Above Optimal: LDL 100-129 MG/DL Borderline High Risk: LDL 130-159 MG/DL High Risk: LDL 160-189 MG/DL Very High Risk: LDL Greater than 189 MG/DL 61 Anion gap measurement may be of limited value in the presence of any alkalosis, especially in a combined acid base disorder. . 62 A metabolite of Naproxen, O-desmethylnaproxen, has been shown to interfere with the Jendrassik-Any method for measuring total bilirubin. Samples from patients who have taken Naproxen have shown spurious elevation in total bilirubin levels. 63 Because ethnic data is not always readily [...] 15-29 5 Kidney failure <15 (or dialysis) Procedures Date Code Description Status 02/04/2018 22890 Nerve Conduction 05-06 Studies Completed 02/04/2018 83382 Needle Electromyography Each Extremity W/Related Completed Paraspinal Areas 12/14/2016 [id number] Diabetic Retinal Eye Exam Completed 06/05/2016 [id number] Colonoscopy Completed 02/21/2016 49488 Arthroscopy Wrist Excision/Repair Triang Completed Fibrocartilage/Debride 02/21/2016 97131 Osteoplasty Shorten Radius Or Ulna Completed 10/30/2015 [id number] Diabetic Retinal Eye Exam Completed 10/19/2012 [id number] Diabetic Retinal Eye Exam Completed 07/13/2012 01814 Rad Exam; Ankle Comp Completed 07/13/2012 28813 Xray Knee 3 Views Completed 07/13/2012 94712 Xray Knee 3 Views Completed 10/21/2011 08927 EKG Tracing & Interpretation Completed 08/25/2011 33583 Rad Exam; OS Alcis Completed Encounters Type Date Location Provider Dx Diagnosis Office Visit 01/27/2019 [facility] Monico Khalil NP I10 Essential (primary ) 4:20p Medicine - [facility] hypertension Office Visit 12/22/2018 [facility] Monico Khalil NP E11.9 Type 2 diabetes 4:20p Medicine - [facility] mellitus without complications I10 Essential (primary) hypertension G47.39 Other sleep apnea Office Visit 09/22/2018 4:20p [facility] Monico Khalil, E11.65 Type 2 diabetes Medicine - EDUCATION PROGRAM COORDINATOR mellitus with Ccmob hyperglycemia I10 Essential (primary) hypertension E78.00 Pure hypercholesterolemia, unspecified Office Visit 11/24/2017 2:40p [facility] Monico Khalil E11.65 Type 2 diabetes Medicine - EDUCATION PROGRAM COORDINATOR mellitus with Ccmob hyperglycemia I10 Essential (primary) hypertension M51.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 disc disorders w radiculopathy, lumbar region Office Visit 08/23/2017 2:40p [facility] Monico Khalil E11.65 Type 2 diabetes Medicine - EDUCATION PROGRAM COORDINATOR mellitus with Ccmob hyperglycemia I10 Essential (primary) hypertension R21 Rash and other nonspecific skin eruption Office Visit 04/12/2017 Neurosurgery Laila Wilson, G57.13 Meralgia 2:00p [facility] [place] paresthetica, bilateral lower limbs M51.36 Other intervertebral disc degeneration, lumbar region Office Visit 03/22/2017 4:20p [facility] Monico Simran, E11.65 Type 2 diabetes Medicine - EDUCATION PROGRAM COORDINATOR mellitus with Ccmob hyperglycemia I10 Essential (primary) hypertension R20.2 Paresthesia of skin M51.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 disc disorders w radiculopathy, lumbar region Office Visit 02/19/2017 9:20a [facility] Monico Khalil M79.606 Pain in leg, Medicine - [facility] EDUCATION PROGRAM COORDINATOR unspecified M51.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 general adult medical exam w/o abnormal findings E11.65 Type 2 diabetes mellitus with hyperglycemia I10 Essential (primary) hypertension E78.00 Pure hypercholesterolemia, unspecified G47.33 Obstructive sleep apnea (adult) (pediatric) K21.9 Gastro-esophageal reflux disease without esophagitis Z23 Encounter for immunization Office Visit 04/13/2016 8:40a [facility] Monico Khalil E11.65 Type 2 diabetes Medicine - EDUCATION PROGRAM COORDINATOR mellitus with [facility] hyperglycemia I10 Essential (primary) hypertension Office Visit 02/13/2016 [facility] S63.512A Sprain of carpal 1:30p [facility] joint of left C.M.A. wrist, initial encounter Office Visit 01/10/2016 [facility] Monico Khalil NP E11.65 Type 2 diabetes 9:00a Medicine - [facility] mellitus with hyperglycemia K21.9 Gastro-esophageal reflux disease without esophagitis R22.9 Localized swelling, mass and lump, unspecified Office Visit 10/11/2015 9:00a [facility] Monico Khalil E11.65 Type 2 diabetes Medicine - EDUCATION PROGRAM COORDINATOR mellitus with [facility]cm[facility] hyperglycemia I10 Essential (primary) hypertension Office Visit 08/29/2015 9:00a [facility] Monico Khalil J20.9 Acute bronchitis, Medicine - EDUCATION PROGRAM COORDINATOR unspecified [facility] Office Visit 08/12/2015 9:00a [facility] Monico Khalil E11.65 Type 2 diabetes Medicine - EDUCATION PROGRAM COORDINATOR mellitus with [facility] hyperglycemia M25.561 Pain in right knee I10 Essential (primary) hypertension Office Visit 07/11/2015 10:40a [facility] Jorden aTmayo E11.65 Type 2 diabetes Carmelita Alston M.D. [...] Amy Cramer M.D. Office Visit 11/08/2014 9:00a [facility] Monico Khalil NP 250.02 Diabetes Medicine - [facility] Mellitus W/O Compl Type II Or Unspec Type Uncontrol 401.9 Hypertension Unspec 724.4 Neuritis Or Radiculitis Thoracic Or Lumbosacral Unspec Office Visit 08/10/2014 9:00a [facility] Monico Khalil, 250.02 Diabetes [facility]ORDIN[facility] W/O Compl Type II Or Unspec Type Uncontrol 401.9 Hypertension Unspec 719.43 Pain Joint Forearm Office Visit 05/10/2014 10:00a [facility] Monico Khalil, 250.02 Diabetes [facility] COORDINATOR W/O Compl Type II Or Unspec Type Uncontrol 401.9 Hypertension Unspec Office Visit 01/10/2014 8:40a [facility] Melinda Guan, 250.02 Diabetes Medicine - Felice Lima Mellitus W/O Compl Type II Or Unspec Type Uncontrol 272.0 Hypercholesterolemia Pure 573.3 Hepatitis Unspec 278.01 Obesity Morbid Office Visit 09/26/2013 8:40a [facility] Melinda Guan, 278.01 Obesity Morbid Medicine - Felice Lima 250.02 Diabetes Mellitus W/O Compl Type II Or Unspec Type Uncontrol Office Visit 08/16/2013 10:20a [facility] Melinda Guan, 401.9 Hypertension Unspec Medicine - MCamryn Cortésob 250.00 Diabetes Mellitus W/O Compl Type II Or Unspec Controlled 278.01 Obesity Morbid Office Visit 07/19/2013 10:00a [facility] Melinda Guan, 278.01 Obesity Morbid Medicine - Felice [place] Office Visit 07/07/2013 9:40a [facility] Melinda Guan, 278.01 Obesity Morbid Medicine - [facility] M.D. Office Visit 06/19/2013 9:00a [facility] Melinda Guan, 250.00 Diabetes Mellitus Medicine - [facility] M.D. W/O Compl Type II Or Unspec Controlled 278.01 Obesity Morbid 401.9 Hypertension Unspec V04.81 Need For Prophylactic Vaccination & Inoculation/Influenza Office Visit 04/25/2013 2:40p [facility] Melinda Guan, 461.9 Sinusitis Acute Medicine - [facility] M.D. Unspec Office Visit 03/03/2013 10:40a [facility] Melinda Guan, 278.01 Obesity Morbid Medicine - [facility] M.D. 250.00 Diabetes Mellitus W/O Compl Type II Or Unspec Controlled 844.9 Sprains & Strains Knee & Leg Unspec Office Visit 12/28/2012 9:00a [facility] Melinda Guan, 250.02 Diabetes Medicine - [facility] M.D. Mellitus W/O Compl Type II Or Unspec Type Uncontrol 278.01 Obesity Morbid 401.9 Hypertension Unspec 782.0 Skin Sensation Disturbance Office Visit 10/24/2012 10:40a [facility] Adalid Guan, 250.00 Diabetes Mellitus Medicine - [facility] M.D. W/O Compl Type II Or Unspec Controlled 401.9 Hypertension Unspec 278.01 Obesity Morbid Office Visit 08/17/2012 8:40a [facility] Adalid Guan, 250.00 Diabetes Mellitus Medicine - [...] & Leg Unspec Office Visit 04/08/2012 9:40a [facility] Adalid Guan, 250.00 Diabetes Mellitus Medicine - [facility] M.D. W/O Compl Type II Or Unspec Controlled 272.0 Hypercholesterolemia Pure 401.9 Hypertension Unspec V04.81 Need For Prophylactic Vaccination & Inoculation/Influenza V03.82 Streptococcus Pneumoniae Vaccination Spec Other Office Visit 03/14/2012 9:40a [facility] Melinda Guan, 379.90 Eye Disorder Medicine - Felice M.DClifford Unspec Office Visit 02/09/2012 8:40a [facility] Melinda Guan, 250.00 Diabetes Mellitus Medicine - Felice Rene.D. W/O Compl Type II Or Unspec Controlled 401.9 Hypertension Unspec Office Visit 12/22/2011 8:40a [facility] Melinda Guan, 250.00 Diabetes Mellitus Medicine - Felice BoucherDClifford W/O Compl Type II Or Unspec Controlled 401.9 Hypertension Unspec 278.01 Obesity Morbid 272.0 Hypercholesterolemia Pure Office Visit 12/21/2011 1:30p [facility]opedic Jaylen 728.71 Fibromatosis [facility] Plantar Fascia AjMToo Office Visit 10/21/2011 11:20a [facility] Melinda Guan, 250.00 Diabetes Mellitus Medicine - Felice Rene.D. W/O Compl Type II Or Unspec Controlled 401.9 Hypertension Unspec 278.01 Obesity Morbid 327.23 Obstructive Sleep Apnea Adult & Pediatric V70.0 Examination General Medical Routine AT Health Care Facility 785.9 Cardiovascular Symptoms Other 709.9 Skin & Subcutaneous Tissue Disorders Unspec Office Visit 09/18/2011 3:20p [facility] Internal Melinda Guan, 250.00 Diabetes Mellitus Medicine - Felice BoucherDClifford W/O Compl Type II Or Unspec Controlled 278.01 Obesity Morbid 327.23 Obstructive Sleep Apnea Adult & Pediatric 401.1 Hypertension Benign Office Visit 08/25/2011 10:30a Orthopedic Reggie Whitaker, 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
== END 2019-02-08 15:44 | disposition home or self-care (01) ==
LOC: UCEAST 15:13
DX: Z53.8 Procedure and treatment not carried out for other reasons (principal)

== ENCOUNTER 2019-02-08 15:45 | Emergency (ER) | payer OTHER ==
[2019-02-08 17:36] VITALS: BP 148/100
--- NOTE | 2019-02-08 18:06 | UC ---
Skin Complaint HPI - HPI Summary HPI Summary: 53 y/o male presents to the urgent care c/o red raised rash onset Wednesday after exposed to sun and possible weeds doing yard work. Pt 's rash ends at sleeve line. Today blistering, a little itchy, feels hot. - History of Current Complaint Chief Complaint: UCSkin Time Seen by Provider: 02/08/19 17:56 Stated Complaint: RASH Hx Obtained From: Patient Pain Intensity: 1 - Allergy/Home Medications Allergies/Adverse Reactions: Allergies Allergy/AdvReac Type Severity Reaction Status Date / Time No Known Allergies Allergy Verified 02/08/19 17:36 PMH/Surg Hx/FS Hx/Imm Hx - Surgical History Surgical History: Yes Surgery Procedure, Year, and Place[place] [facility] [place] [facility] [place] - Social History Alcohol Use: social Alcohol Amount: MAYBE 2-3 /YEAR Substance Use Type: Marijuana Smoking Status (MU): Former Smoker Type: Cigarettes Amount Used/How Often: 1PPD Length of Time of Smoking/Using Tobacco: age 12 until 2007 Have You Smoked in the Last Year: No When Did the Patient Quit Smoking/Using Tobacco: 2007 Physical Exam Vital Signs: Initial Vital Signs Temp 98 F 02/08/19 17:32 Pulse 75 02/08/19 17:32 Resp 17 02/08/19 17:32 BP 148/100 02/08/19 17:32 Pulse Ox 100 02/08/19 17:32 Course/Dx - Differential Diagnoses - Skin Complaint Differential Diagnoses: Abscess, Cellulitis, Contact Dermatitis, Local Allergic Reaction, MRSA, Poison Nicole, Poison [place], Urticaria - Diagnoses Provider Diagnosis: Poison nicole dermatitis, Uncontrolled hypertension Discharge - Sign-Out/Discharge Documenting (check all that apply): Patient Departure - d/c home All imaging exams completed and their final reports reviewed: No Studies - Discharge Plan Condition: Stable Disposition: HOME Prescriptions: Clobetasol 0.05% OINT* 1 applic TOPICAL BID #1 tube diPHENhydraMINE PO* [Benadryl PO 25 MG TAB*] 25 mg PO TID PRN #30 tab PRN Reason: pruritus Patient Education Materials: Poison Nicole (ED) Referrals: Monico Khalil NP [Primary Care Provider] - 1 Week Domonique Milner [Medical Doctor] - 1 Week Additional Instructions: 1-Please apply Clobetasol topical cream medication as directed over affected areas . Avoid sun exposure 2-Take Benadryl PO as directed to alleviate itchiness. 3-If symptoms do not improve or worsen please f/u with your PCP or Tool Gr[employer] External Dr Milner for further evaluation and treatment. 4-Your BP is elevated today. Please take your BP medications and decrease salt in your diet, monitor BP and if it continues to be elevated please f/u with your PCP for further management. If you develop chest pain, dizziness, visual disturbances, SOB, or severe NAPIER please go immediately to the ER for further management - Billing Disposition and Condition Condition: STABLE Disposition: Home
== END 2019-02-08 18:29 | disposition home or self-care (01) ==
LOC: UCEAST 15:45
DX: L23.7 Allergic contact dermatitis due to plants, except food (principal); I10 Essential (primary) hypertension; Z87.891 Personal history of nicotine dependence
CPT/HCPCS: 99212; G0463